=== PATIENT | male | born 1960 | race Caucasian/White ===

== ENCOUNTER 2018-03-05 09:52 | Inpatient (IN) | payer OTHER ==
--- NOTE | 2018-03-05 10:09 | PDOC ---
History of Present Illness <Willi García - Last Filed: 03/05/18 12:02> - History of Present Illness Initial Comments: The patient is a 57M w/ a history of HTN and pre-DM (not on meds) who presents for evaluation of 2 episodes of shortness of breath and associated L arm numbness/discomfort that spontaneously resolved. He reports waking up at 0100 today with L arm pain from his shoulder to elbow and associated SOB. He states his symptoms spontaneously resolved within 10 minutes. He awoke at 0615 to take his kids to school w/o symptoms. Then again he awoke at 0930 with similar but less intense symptoms which resolved after approximately 30m. Denies fevers/chills, BOYD, vision changes, chest pain. Denies current SOB, N/V/C/D 03/05/18 10:33 <Freddy Culp - Last Filed: 03/05/18 12:48> - General Chief Complaint: Pain Stated Complaint: PAIN TO LEFT SHOULDER AND DOWN LEFT ARM Past History <Willi García - Last Filed: 03/05/18 12:02> - Past Medical History Anemia: No Asthma: No Cancer: No Cardiac Disorders: No CVA: No COPD: No CHF: No Dementia: No Diabetes: Yes GI Disorders: No Disorders: No HTN: Yes Hypercholesterolemia: No Liver Disease: No Seizures: No Thyroid Disease: No - Surgical History Abdominal Surgery: No Appendectomy: No Cardiac Surgery: No Cholecystectomy: Yes Lung Surgery: No Neurologic Surgery: No Orthopedic Surgery: No - Suicide/Smoking/Psychosocial Hx Smoking Status: Yes Smoking History: Current every day smoker Have you smoked in the past 12 months: Yes Number of Cigarettes Smoked Daily: 10 'Breaking Loose' booklet given: 09/19/13 Hx Alcohol Use: No Drug/Substance Use Hx: No Substance Use Type: None Hx Substance Use Treatment: No <Freddy Culp - Last Filed: 03/05/18 12:48> - Past Medical History Allergies/Adverse Reactions: Allergies Allergy/AdvReac Type Severity Reaction Status Date / Time Penicillins Allergy Intermediate Swelling Verified 03/05/18 10:00 Home Medications: Ambulatory Orders NK [No Known Home Medication] 03/05/18 Review of Systems - Review of Systems Able to Perform ROS?: Yes Comments:: GENERAL/CONSTITUTIONAL: No fever or chills. No weakness HEAD, EYES, EARS, NOSE AND THROAT: No change in vision. No ear pain or discharge. No sore throat CARDIOVASCULAR: No current chest pain or shortness of breath RESPIRATORY: No cough, wheezing, or hemoptysis GASTROINTESTINAL: No nausea, vomiting, diarrhea or constipation GENITOURINARY: No dysuria, frequency, or change in urination MUSCULOSKELETAL: No joint or muscle swelling or pain. No neck or back pain SKIN: No rash NEUROLOGIC: No headache, vertigo, loss of consciousness, or change in strength/ sensation ENDOCRINE: No increased thirst. No abnormal weight change HEMATOLOGIC/LYMPHATIC: No anemia, easy bleeding, or history of blood clots ALLERGIC/IMMUNOLOGIC: No hives or skin allergy 03/05/18 10:07 Is the patient limited Ethiopian proficient: No <Freddy Culp - Last Filed: 03/05/18 12:48> *Physical Exam - Vital Signs Last Vital Signs Temp Pulse Resp BP Pulse Ox 98.4 F 70 16 169/67 98 03/05/18 09:54 03/05/18 11:47 03/05/18 11:47 03/05/18 11:47 03/05/18 10:59 <Willi García - Last Filed: 03/05/18 12:02> - Vital Signs Vital Signs Temp Pulse Resp BP Pulse Ox 98.4 F 79 20 229/121 H 99 03/05/18 09:54 03/05/18 09:54 03/05/18 09:54 03/05/18 09:54 03/05/18 09:54 03/05/18 10:48 - Physical Exam Comments: GENERAL: Awake, alert, and fully oriented, in no acute distress HEAD: No signs of trauma, normocephalic, atraumatic EYES: PERRLA, EOMI, sclera anicteric, conjunctiva clear LUNGS: No distress, speaks full sentences, clear to auscultation bilaterally HEART: Regular rate and rhythm, normal S1 and S2, no murmurs, rubs or gallops, peripheral pulses normal and equal bilaterally ABDOMEN: Soft, nontender, normoactive bowel sounds. No guarding, no rebound EXTREMITIES : Normal inspection, Normal range of motion, no edema. No clubbing or cyanosis NEUROLOGICAL: Cranial nerves II through XII grossly intact. Normal speech, normal gait, no focal sensorimotor deficits SKIN: Warm, Dry, normal turgor, no rashes or lesions noted 03/05/18 10:08 <Freddy Culp - Last Filed: 03/05/18 12:48> ED Treatment Course - LABORATORY CBC & Chemistry Diagram: 03/05/18 10:39 03/05/18 10:39 - ADDITIONAL ORDERS Additional order review: Laboratory Results 03/05/18 10:39 Sodium 136 Potassium 3.9 Chloride 101 Carbon Dioxide 24 Anion Gap 11 BUN 12 Creatinine 0.8 Creat Clearance w eGFR > 60 Random Glucose 215 H Calcium 8.4 L Total Bilirubin 1.5 H AST 24 ALT 38 Alkaline Phosphatase 92 Creatine Kinase 100 Troponin I < 0.02 Total Protein 7.2 Albumin 3.9 03/05/18 10:39 RBC 4.96 MCV 84.4 MCHC 35.0 RDW 13.6 MPV 7.8 D - Medications Given in the ED: ED Medications Discontinued Medications Generic Name Dose Route Start Last Admin Trade Name Nell PRN Reason Stop Dose Admin Hydralazine HCl 10 mg 03/05/18 11:11 03/05/18 11:28 Apresoline Injection - IVPUSH 03/05/18 11:12 Not Given ONCE ONE <Willi García - Last Filed: 03/05/18 12:02> - LABORATORY CBC & Chemistry Diagram: 03/05/18 10:39 03/05/18 10:39 <Freddy Culp - Last Filed: 03/05/18 12:48> Medical Decision Making - Medical Decision Making The patient is a 57M w/ a history of HTN and pre-DM who presents for evaluation of 2 episodes of SOB w/ associated L arm pain that woke him from sleep and spontaneously resolved Ddx: HTN urgency, ACS, EDUARDA though less likely, not likely [facility] ED Course CMP, CBC, Cardiac enzymes ECG CXR 03/05/18 10:49 No leukocytosis No anemia lytes wnl Hyperglycemia to 215 Trop I neg 03/05/18 12:20 CXR w/o evidence of PNA, PNX, effusion, or widened mediastinum Plan for admission for HTN crisis and ACS r/o Planned for hydralazine 10mg IV once for HTN crsis. Pt's BP spontaneously decreased to SBP 160s. Will hold Hydralazine for now 03/05/18 12:22 Dispo: Admit 03/05/18 12:46 <Freddy Culp - Last Filed: 03/05/18 12:48> *DC/Admit/Observation/Transfer - Discharge Dispostion Decision to Admit order: Yes <Willi García - Last Filed: 03/05/18 12:02> - Discharge Dispostion Decision to Admit order: Yes <Freddy Culp - Last Filed: 03/05/18 12:48> Diagnosis at time of Disposition: ACS (acute coronary syndrome), Hypertensive crisis - Discharge Dispostion Condition at time of disposition: Fair
[2018-03-05 10:14] VITALS: BMI 38.5
[2018-03-05 10:42] LABS: HEMATOCRIT 41.9 % (35.4-49); HEMOGLOBIN 14.7 GM/dl (11.7-16.9); MCH 29.6 pg (25.7-33.7); MEAN CELL VOLUME 84.4 fl (80-96); MEAN PLT VOLUME 7.8 fl (7.5-11.1); PLATELET COUNT 219 K/MM3 (134-434); RBC 4.96 M/mm3 (4.00-5.60); RDW 13.6 % (11.9-15.9); WHITE BLOOD COUNT 7.7 K/mm3 (4.0-10.8)
--- NOTE | 2018-03-05 11:08 | PDOC ---
Attending Attestation - Resident Resident Name: Erna Culpan - ED Attending Attestation I have performed the following: I have examined & evaluated the patient, The case was reviewed & discussed with the resident, I agree w/resident's findings & plan - HPI HPI: 03/05/18 11:04 57-year-old male with history of hypertension and diabetes off medications and lost to follow-up for a couple of years secondary to insurance reasons, otherwise in good state of health recently until this morning, when he awoke 2 times episodes of left shoulder pain with difficulty breathing. Each episode lasted about 15 minutes, resolved spontaneously. No associated headache or vision changes or speech changes, no actual chest pain or palpitations or lightheadedness or diaphoresis. At baseline, reports no exercise limitations and is active daily, has been losing weight. - Physicial Exam PE: 03/05/18 11:05 Markedly elevated blood pressures with systolic over 200, otherwise well- appearing seated in stretcher smiling and conversant Pupils are equal round reactive to light, no JVD Heart is regular without murmurs Lungs are clear Abdomen is benign No edema or calf tenderness - Medical Decision Making 03/05/18 11:06 57-year-old male with history of untreated hypertension and diabetes presents with 2 separate episodes of shortness of breath, hypertensive on arrival. Likely symptomatic hypertension, ACS is on the differential as well. Labs, EKG, chest x-ray Blood pressure control Will need admission for echo, blood pressure control, and reinstating medical care 03/05/18 11:55 trop negative, chem wnl. proceed with inpt tele for hypertensive emergency, signout given to DASHAWN Nguyen, Dr. Rome accepting. Heart Score/ECG Review #1 ECG reviewed & interpreted by me at: 10:09 General ECG Interpretation: Sinus Rhythm, Normal Rate (66), Normal Intervals ( qtc 415), No acute ischemic changes
[2018-03-05] MEDS ORDERED: hydrALAZINE HCL 20 MG/ML VIAL IVPUSH ONE ×2 (11:11→15:45)
[2018-03-05] MEDS ORDERED: hydrALAZINE HCL 20 MG/ML VIAL ONE (11:14)
[2018-03-05 11:49] LABS: ALBUMIN 3.9 g/dl (3.4-5.0); ALK PHOS 92 U/L (45-117); ANION GAP 11 MMOL/L (8-16); BILIRUBIN,TOTAL 1.5 mg/dL (0.2-1); BLOOD UREA NITROGEN 12 mg/dL (7-18); CALCIUM 8.4 mg/dL (8.5-10.1); CHLORIDE 101 mmol/L (98-107); CO2 24 mmol/L (21-32); CREATININE 0.8 mg/dL (0.55-1.3); GLUCOSE,RANDOM 215 mg/dL (74-106); POTASSIUM 3.9 mmol/L (3.5-5.1); SGOT/AST 24 U/L (15-37); SGPT/ALT 38 U/L (13-61); SODIUM 136 mmol/L (136-145); TOT PROT 7.2 g/dl (6.4-8.2)
--- NOTE | 2018-03-05 12:59 | EKG ---
Test Reason : Blood Pressure : / mmHG Vent. Rate : 066 BPM Atrial Rate : 066 BPM P-R Int : 154 ms QRS Dur : 094 ms QT Int : 396 ms P-R-T Axes : 057 035 013 degrees QTc Int : 415 ms NORMAL SINUS RHYTHM NORMAL ECG NO PREVIOUS ECGS AVAILABLE Confirmed by Fransisco Chavira MD ([id number]) on 03/05/2018 12:59:26 PM Referred By: DAX HURTADO Confirmed By:Fransisco Chavira MD
--- NOTE | 2018-03-05 14:32 | HP ---
CHIEF COMPLAINT: Shortness of breath and left arm numbness PCP: None HISTORY OF PRESENT ILLNESS: 57 year-old male with a PMH significant for HTN and non-insulin dependent Type II diabetes. The patient has not taken medication for several years because he lost his health insurance. He presents to the ED today after experiencing two episodes of left arm tricep pain and tingling in the fingers of his left hand. These events occurred while he was sleeping. He think he may have been sleeping on his left arm the wrong way. Each time the pain woke him up and he also experienced shortness of breath. Patient denies chest pain, palpitations, decreased exercise tolerance, orthopnea, and lower extremity edema. Denies fever , sweats, chills. Denies nausea, vomiting, diarrhea. 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 Smoking: current every day smoker Alcohol: denies Drugs: denies Family History: Allergies Penicillins Allergy (Intermediate, Verified 03/05/18 10:00) Swelling A CHILD HOME MEDICATIONS: Home Medications Medication Instructions Recorded NK [No Known Home Medication] 03/05/18 REVIEW OF SYSTEMS CONSTITUTIONAL: Absent: fever, chills, diaphoresis, generalized weakness, malaise, loss of appetite, weight change HEENT: Absent: rhinorrhea, nasal congestion, throat pain, throat swelling, difficulty swallowing, mouth swelling, ear pain, eye pain, visual changes CARDIOVASCULAR: +left arm pain, tingling in fingers of left hand, SOB Absent: chest pain, syncope, palpitations, irregular heart rate, lightheadedness , peripheral edema RESPIRATORY: Absent: cough, shortness of breath, dyspnea with exertion, orthopnea, wheezing, stridor, hemoptysis GASTROINTESTINAL: Absent: abdominal pain, abdominal distension, nausea, vomiting, diarrhea, constipation, melena, hematochezia GENITOURINARY: Absent: dysuria, frequency, urgency, hesitancy, hematuria, flank pain, genital pain MUSCULOSKELETAL: Absent: myalgia, arthralgia, joint swelling, back pain, neck pain SKIN: Absent: rash, itching, pallor HEMATOLOGIC/IMMUNOLOGIC: Absent: easy bleeding, easy bruising, lymphadenopathy, frequent infections ENDOCRINE: Absent: unexplained weight gain, unexplained weight loss, heat intolerance, cold intolerance NEUROLOGIC: Absent: headache, focal weakness or paresthesias, dizziness, unsteady gait, seizure, mental status changes, bladder or bowel incontinence PSYCHIATRIC: Absent: anxiety, depression, suicidal or homicidal ideation, hallucinations. PHYSICAL EXAMINATION Vital Signs - 24 hr 03/05/18 03/05/18 03/05/18 09:54 10:59 11:28 Temperature 98.4 F Pulse Rate 79 Pulse Rate [ 72 64 Apical] Respiratory 20 16 16 Rate Blood Pressure 229/121 H Blood Pressure 207/99 H 172/83 H [Right Arm] O2 Sat by Pulse 99 98 Oximetry (%) 03/05/18 03/05/18 03/05/18 11:47 13:11 14:10 Temperature Pulse Rate Pulse Rate [ 70 72 72 Apical] Respiratory 16 16 16 Rate Blood Pressure Blood Pressure 169/67 184/87 H 162/85 [Right Arm] O2 Sat by Pulse 100 Oximetry (%) GENERAL: Awake, alert, and fully oriented, in no acute distress. Agitated, loud , verbally agressive toward staff. LUNGS: Breath sounds equal, clear to auscultation bilaterally. No wheezes, and no crackles. No accessory muscle use. HEART: Regular rate and rhythm, normal S1 and S2 without murmur, rub or gallop. ABDOMEN: Soft, nontender, not distended MUSCULOSKELETAL: Normal range of motion at all joints. No bony deformities or tenderness. No CVA tenderness. UPPER EXTREMITIES: 2+ pulses, warm, well-perfused. No cyanosis. No clubbing. No peripheral edema. LOWER EXTREMITIES: 2+ pulses, warm, well-perfused. No calf tenderness. No peripheral edema. No calf tenderness NEUROLOGICAL: Cranial nerves II-XII intact. Normal speech. Laboratory Results - last 24 hr 03/05/18 03/05/18 10:39 10:39 WBC 7.7 RBC 4.96 Hgb 14.7 Hct 41.9 MCV 84.4 MCH 29.6 MCHC 35.0 RDW 13.6 Plt Count 219 MPV 7.8 D Sodium 136 Potassium 3.9 Chloride 101 Carbon Dioxide 24 Anion Gap 11 BUN 12 Creatinine 0.8 Creat Clearance w eGFR > 60 Random Glucose 215 H Calcium 8.4 L Total Bilirubin 1.5 H AST 24 ALT 38 Alkaline Phosphatase 92 Creatine Kinase 100 Troponin I < 0.02 Total Protein 7.2 Albumin 3.9 ASSESSMENT/PLAN 57 year-old male with a PMH significant for HTN, non-insulin dependent Type II diabetes, morbid obesity, and s/p cholecystectomy with questionable ascending cholangitis in 2013 (signed out AMA). Admitted for hypertensive emergency. Hypertensive emergency --229/121 on arrival to ED with SOB and left arm numbness --hydralazine IVP and PO given with little effect; amlopine and lisinopril given with little effect; will start labetolol IVP and PO --troponin neg x 1, two pending --CXR unremarkable --ECG: not suggestive of acute ischemic event --echo prdered --telemetry monitoring --cardiology consult --NPO after midnight in case cardiology wants to stress tomorrow Non-insulin dependent Type II diabetes --was on meds years ago but lost to follow up, lost insurance --A1C pending --Novolog sliding scale Elevated total bilirubin s/p cholecystectomy --Total bili 1.5 --bili elevated in past, 5.0 in 2013 during workup for ascending cholangitis --repeat LFTs in am Morbid obesity --BMI 38.5 FEN Fluids: PO intake adequate Electrolytes: repete as indicated Nutrition: diabetic low sodium DVT prophylaxis: subq heparin Dispo: continues to require inpatient care. Visit type - Emergency Visit Emergency Visit: Yes ED Registration Date: 03/05/18 Care time: The patient presented to the Emergency Department on the above date and was hospitalized for further evaluation of their emergent condition. - New Patient This patient is new to me today: Yes Date on this admission: 03/06/18 - Critical Care Critical Care patient: No
[2018-03-05] MEDS: hydrALAZINE HCL 20 MG/ML VIAL IVPUSH ONE ×2 (14:50→15:41)
[2018-03-05] MEDS ORDERED: hydrALAZINE HCL 10 MG TABLET PO SCH (15:00)
[2018-03-05] MEDS ORDERED: hydrALAZINE HCL 10 MG TABLET PO ONE (15:45)
[2018-03-05] MEDS: INSULIN SLIDING SCALE (NOVOLOG) 1 VIAL SQ SCH ×2 (17:16→21:38)
[2018-03-05] MEDS ORDERED: amLODIPine BESYLATE 5 MG TABLET (FP) PO ONE (18:15)
[2018-03-05] MEDS ORDERED: LISINOPRIL 10 MG TABLET (FP) PO ONE (18:15)
--- NOTE | 2018-03-05 18:49 | CON.CARD ---
Consult Consult Specialty:: Cardiology Reason for Consultation:: sob left arm numbness - History of Present Illness History of Present Illness: The patient is a 57M w/ a history of HTN and pre-DM (not on meds) who presents for evaluation of 2 episodes of shortness of breath and associated L arm numbness/discomfort that spontaneously resolved. He reports waking up at 0100 today with L arm pain from his shoulder to elbow and associated SOB. He states his symptoms spontaneously resolved within 10 minutes. He awoke at 0615 to take his kids to school w/o symptoms. Then again he awoke at 0930 with similar but less intense symptoms which resolved after approximately 30m. Denies fevers/chills, BOYD, vision changes, chest pain. Denies current SOB, N/V/C/D - History Source History Provided By: Patient, Medical Record - Past Medical History Cardio/Vascular: Yes: HTN Endocrine: Yes: Diabetes Mellitus - Alcohol/Substance Use Hx Alcohol Use: No - Smoking History Smoking history: Current every day smoker Have you smoked in the past 12 months: Yes Aproximately how many cigarettes per day: 10 If you are a former smoker, when did you quit?: 7 YEARS Home Medications - Allergies Allergies/Adverse Reactions: Allergies Allergy/AdvReac Type Severity Reaction Status Date / Time Penicillins Allergy Intermediate Swelling Verified 03/05/18 10:00 - Home Medications Home Medications: Ambulatory Orders NK [No Known Home Medication] 03/05/18 Review of Systems - Review of Systems Constitutional: reports: No Symptoms Eyes: reports: No Symptoms HENT: reports: No Symptoms Neck: reports: No Symptoms Cardiovascular: reports: Chest Pain, Shortness of Breath Gastrointestinal: reports: No Symptoms Genitourinary: reports: No Symptoms Breasts: reports: No Symptoms Reported Musculoskeletal: reports: No Symptoms Integumentary: reports: No Symptoms Neurological: reports: No Symptoms Endocrine: reports: No Symptoms Hematology/Lymphatic: reports: No Symptoms Psychiatric: reports: No Symptoms Vital Signs: Vital Signs Temperature 98.1 F 03/05/18 12:26 Pulse Rate 76 03/05/18 17:35 Respiratory Rate 16 03/05/18 14:10 Blood Pressure 205/92 H 03/05/18 17:35 O2 Sat by Pulse Oximetry (%) 100 03/05/18 14:10 Constitutional: Yes: Well Nourished, No Distress, Calm Eyes: Yes: WNL, Conjunctiva Clear, EOM Intact HENT: Yes: WNL, Atraumatic, Normocephalic Neck: Yes: WNL, Supple, Trachea Midline Respiratory: Yes: WNL, Regular, CTA Bilaterally Gastrointestinal: Yes: WNL, Normal Bowel Sounds Renal/: Yes: WNL Cardiovascular: Yes: WNL, Regular Rate and Rhythm Musculoskeletal: Yes: WNL Extremities: Yes: WNL Integumentary: Yes: WNL Neurological: Yes: WNL, Alert, Oriented ...Motor Strength: WNL Psychiatric: Yes: WNL, Alert, Oriented - Other Data Labs, Other Data: CBC, BMP 03/05/18 10:39 03/05/18 10:39 Troponin, BNP 03/05/18 03/05/18 10:39 17:00 Troponin I < 0.02 < 0.03 Troponin, BNP 03/05/18 03/05/18 10:39 17:00 Troponin I < 0.02 < 0.03 Laboratory Tests 03/05/18 03/05/18 03/05/18 10:39 10:39 17:00 WBC 7.7 RBC 4.96 Hgb 14.7 Hct 41.9 MCV 84.4 MCH 29.6 MCHC 35.0 RDW 13.6 Plt Count 219 MPV 7.8 D Sodium 136 Potassium 3.9 Chloride 101 Carbon Dioxide 24 Anion Gap 11 BUN 12 Creatinine 0.8 Creat Clearance w eGFR > 60 POC Glucometer Random Glucose 215 H Calcium 8.4 L Total Bilirubin 1.5 H AST 24 ALT 38 Alkaline Phosphatase 92 Creatine Kinase 100 Troponin I < 0.02 < 0.03 Total Protein 7.2 Albumin 3.9 03/05/18 17:13 WBC RBC Hgb Hct MCV MCH MCHC RDW Plt Count MPV Sodium Potassium Chloride Carbon Dioxide Anion Gap BUN Creatinine Creat Clearance w eGFR POC Glucometer 185 Random Glucose Calcium Total Bilirubin AST ALT Alkaline Phosphatase Creatine Kinase Troponin I Total Protein Albumin Imaging - Results Chest X-ray: Image Reviewed (no i/e) EKG: Image Reviewed (sr q wave in V2 ? placement o/w unremarkable) Problem List - Problems (1) ACS (acute coronary syndrome) Code(s): I24.9 - ACUTE ISCHEMIC HEART DISEASE, UNSPECIFIED (2) Hypertensive crisis Code(s): I16.9 - HYPERTENSIVE CRISIS, UNSPECIFIED (3) FUO (fever of unknown origin) Code(s): R50.9 - FEVER, UNSPECIFIED Assessment/Plan HTN DM Morbid obesity noncompliance sob l arm pain Plan norvasc 5 lisinopril 10 [id number] r/josephine telemetry lipid profile DM rx ECHO If BP controlled in AM MIBI ST Patient stating he may just go home and not to wait for the w/u. He understands the risks of . D/w patient , patient and DIE ASSEMBLER Patrick
[2018-03-05] MEDS: ASPIRIN 81 MG CHEWABLE TABLETS PO SCH ×2 (19:00→21:38)
[2018-03-05] MEDS ORDERED: LABETALOL HCL 5 MG/1 ML (100MG/20 ML VIAL) ONE (21:25)
[2018-03-05] MEDS ORDERED: LABETALOL HCL 5 MG/1 ML (100MG/20 ML VIAL) IVPUSH ONE (21:45)
[2018-03-05] MEDS ORDERED: LABETALOL HCL 200 MG TABLET (FP) PO ONE (21:45)
[2018-03-06] MEDS ORDERED: LABETALOL HCL 100 MG TABLET (FP) PO SCH (06:00)
[2018-03-06] MEDS: HEPARIN NA (PORCINE) 5,000 UNITS/ML 1ML VIAL SQ SCH ×2 (06:41→14:00)
[2018-03-06] MEDS: INSULIN SLIDING SCALE (NOVOLOG) 1 VIAL SQ SCH ×2 (06:41→12:00)
[2018-03-06 08:46] LABS: BASO % 0.4 % (0-2.0); EOS % 1.3 % (0-4.5); HEMATOCRIT 41.5 % (35.4-49); HEMOGLOBIN 14.6 GM/dl (11.7-16.9); LYMPH % 18.5 % (8-40); MCH 29.9 pg (25.7-33.7); MCHC 35.2 g/dl (32.0-35.9); MEAN CELL VOLUME 85.1 fl (80-96); MEAN PLT VOLUME 8.3 fl (7.5-11.1); MONO % 7.1 % (3.8-10.2); NEUT % 72.7 % (42.8-82.8); PLATELET COUNT 209 K/MM3 (134-434); RBC 4.88 M/mm3 (4.00-5.60); RDW 13.5 % (11.9-15.9); WHITE BLOOD COUNT 8.7 K/mm3 (4.0-10.8)
[2018-03-06 08:52] LABS: ALBUMIN 3.8 g/dl (3.5-5.0); ALK PHOS 66 U/L (32-92); ANION GAP 9 MMOL/L (8-16); BILIRUBIN,TOTAL 1.8 mg/dl (0.2-1.0); BLOOD UREA NITROGEN 14 mg/dl (7-18); CALCIUM 8.9 mg/dl (8.4-10.2); CHLORIDE 102 mmol/L (98-107); CO2 23 mmol/L (22-28); CREATININE 0.7 mg/dl (0.6-1.3); GLUCOSE,RANDOM 230 mg/dl (74-106); MAGNESIUM 1.9 mg/dL (1.8-2.4); PHOSPHOROUS 3.6 mg/dl (2.5-4.6); POTASSIUM 3.7 mmol/L (3.5-5.1); SGOT/AST 22 U/L (10-42); SGPT/ALT 29 U/L (10-40); SODIUM 134 mmol/L (136-145); TOT PROT 6.7 g/dl (6.4-8.3)
[2018-03-06 08:57] LABS: ALBUMIN 3.8 g/dl (3.5-5.0); BILIRUBIN,DIRECT 0.3 mg/dL (0.0-0.3); BILIRUBIN,TOTAL 1.8 mg/dl (0.2-1.0); CHOLESTEROL 153 mg/dl; HDL CHOLESTEROL 37 mg/dl (29-89); LDL CHOLESTEROL (ONLY DFH) 88 mg/dl; TOT PROT 6.7 g/dl (6.4-8.3); TRIGLYCERIDES 139 mg/dl (35-160)
[2018-03-06] MEDS: ASPIRIN 81 MG CHEWABLE TABLETS PO SCH (09:54)
[2018-03-06] MEDS ORDERED: amLODIPine BESYLATE 5 MG TABLET (FP) PO SCH (10:00)
[2018-03-06] MEDS ORDERED: LISINOPRIL 10 MG TABLET (FP) PO SCH (10:00)
--- NOTE | 2018-03-06 11:17 | PN ---
Progress Note, Physician History of Present Illness: The patient is a 57M w/ a history of HTN and pre-DM (not on meds) who presents for evaluation of 2 episodes of shortness of breath and associated L arm numbness/discomfort that spontaneously resolved. He reports waking up at 0100 today with L arm pain from his shoulder to elbow and associated SOB. He states his symptoms spontaneously resolved within 10 minutes. He awoke at 0615 to take his kids to school w/o symptoms. Then again he awoke at 0930 with similar but less intense symptoms which resolved after approximately 30m. Denies fevers/chills, BOYD, vision changes, chest pain. Denies current SOB, N/V/C/D - Current Medication List Current Medications: Active Medications Amlodipine Besylate (Norvasc -) 5 mg PO DAILY [facility] Last Admin: 03/06/18 09:53 Dose: 5 mg Aspirin (Asa -) 81 mg PO DAILY [facility] Last Admin: 03/06/18 09:54 Dose: Not Given Heparin Sodium (Porcine) (Heparin -) 5,000 unit SQ TID [facility] Last Admin: 03/06/18 06:41 Dose: 5,000 unit Insulin Aspart (Novolog Vial Sliding Scale -) 1 vial SQ [facility]; Protocol Last Admin: 03/06/18 06:41 Dose: Not Given Labetalol HCl (Normodyne -) 100 mg PO BID@0600,1800 [facility] Last Admin: 03/06/18 06:40 Dose: 100 mg Lisinopril (Prinivil) 10 mg PO DAILY [facility] Last Admin: 03/06/18 09:53 Dose: 10 mg - Objective Vital Signs: Vital Signs Temperature 97.9 F 03/06/18 08:51 Pulse Rate 73 03/06/18 08:51 Respiratory Rate 18 03/06/18 08:52 Blood Pressure 158/61 03/06/18 08:51 O2 Sat by Pulse Oximetry (%) 100 03/05/18 20:09 Eyes: Yes: WNL, Conjunctiva Clear, EOM Intact HENT: Yes: WNL, Atraumatic, Normocephalic Neck: Yes: WNL, Supple, Trachea Midline Cardiovascular: Yes: WNL, Regular Rate and Rhythm Respiratory: Yes: WNL, Regular, CTA Bilaterally Gastrointestinal: Yes: WNL, Normal Bowel Sounds Genitourinary: Yes: WNL Musculoskeletal: Yes: WNL Extremities: Yes: WNL Edema: No Integumentary: Yes: WNL Neurological: Yes: WNL, Alert, Oriented ...Motor Strength: WNL Psychiatric: Yes: WNL Labs: CBC, BMP 03/06/18 07:52 03/06/18 07:52 Problem List - Problems (1) ACS (acute coronary syndrome) Code(s): I24.9 - ACUTE ISCHEMIC HEART DISEASE, UNSPECIFIED (2) Hypertensive crisis Code(s): I16.9 - HYPERTENSIVE CRISIS, UNSPECIFIED (3) FUO (fever of unknown origin) Code(s): R50.9 - FEVER, UNSPECIFIED Assessment/Plan HTN DM Morbid obesity noncompliance sob l arm pain echo nl ef mibi st no ischemia ef 47% hypertensive response to exercise Plan d/c home norvasc 5 lisinopril 10 [id number] rx for DM ? Metformin importance of compliance underscored. Patient understands the risks of , AL, CVA (even in the setting of negative MIBI stress test) if he does not aggressively control his risks factors and continue non-compliance. D/w patient , patient and CYBER SECURITY ENGINEER Patrick
--- NOTE | 2018-03-06 12:13 | ECHO ---
Name: NERISSA ALCARAZ Exam:Adult Echocardiogram Study Date: 03/06/2018 08:54 AM Age: 57 yrs Reason For Study: HYPERTENSIVE CHEST PAIN Height: 74 in MMode/2D Measurements & Calculations IVSd: 1.2 cm Ao root diam: 2.8 cm LVIDd: 4.5 cm LA dimension: 3.6 cm LVIDs: 3.0 cm LVPWd: 0.93 cm EDV(Teich): 93.2 ml ESV(Teich): 35.8 ml Doppler Measurements & Calculations MV E max marley: 63.9 cm/sec MV dec slope: 256.9 cm/sec2 MV A max marley: 88.8 cm/sec MV E/A: 0.72 Procedure A two-dimensional transthoracic echocardiogram with color flow and Doppler was performed. The study w as technically difficult with many images being suboptimal in quality. Left Ventricle The left ventricular size, thickness and function are normal. The left ventricular ejection fraction is normal. E/A reversal consistent with but not diagnostic of poor LV compliance. The left ventricular w all motion is normal. Right Ventricle The right ventricle is normal in size and function. Atria Normal left and right atrial size and function. Mitral Valve There is mild mitral valve thickening. There is no mitral valve stenosis. There is mild mitral regurg itation. Tricuspid Valve There is mild tricuspid valve thickening. There is no tricuspid stenosis. There was insufficient TR d etected to calculate RV systolic pressure. Aortic Valve The aortic valve is not well visualized. No hemodynamically significant valvular aortic stenosis. No aortic regurgitation is present. Pulmonic Valve The pulmonic valve is not well visualized. There is no pulmonic valvular stenosis. There is no pulmon ic valvular regurgitation. Great Vessels The aortic root is normal size. Pericardium/Pleura There is no pericardial effusion. Interpretation Summary The left ventricular size, thickness and function are normal The left ventricular ejection fraction is normal. The left ventricular wall motion is normal. The study was technically difficult with many images being suboptimal in quality. E/A reversal consistent with but not diagnostic of poor LV compliance There is mild mitral valve thickening. There is mild mitral regurgitation. There was insufficient TR detected to calculate RV systolic pressure. MD Liam Elizabeth 03/06/2018 12:13 PM
--- NOTE | 2018-03-06 16:51 | DS ---
Physical Exam: SUBJECTIVE: Patient seen and examined OBJECTIVE: Vital Signs Period Temp Pulse Resp BP Sys/Ferguson Pulse Ox Last 24 Hr 97.9 F-98.1 F 66-80 16-18 143-205/61-96 100 PHYSICAL EXAM GENERAL: The patient is awake, alert, and fully oriented, in no acute distress. HEAD: Normal with no signs of trauma. EYES: PERRL, extraocular movements intact, sclera anicteric, conjunctiva clear. ENT: Ears normal, nares patent, oropharynx clear without exudates, moist mucous membranes. NECK: Trachea midline, full range of motion, supple. LUNGS: Breath sounds equal, clear to auscultation bilaterally, no wheezes, no crackles, no accessory muscle use. HEART: Regular rate and rhythm, S1, S2 without murmur, rub or gallop. ABDOMEN: Soft, nontender, nondistended, normoactive bowel sounds, no guarding, no rebound, no hepatosplenomegaly, no masses. EXTREMITIES: 2+ pulses, warm, well-perfused, no edema. NEUROLOGICAL: Cranial nerves II through XII grossly intact. Normal speech, gait not observed. PSYCH: Normal mood, normal affect. SKIN: Warm, dry, normal turgor, no rashes or lesions noted. LABS Laboratory Results - last 24 hr 03/05/18 03/05/18 03/06/18 17:00 17:13 05:14 WBC RBC Hgb Hct MCV MCH MCHC RDW Plt Count MPV Absolute Neuts (auto) Neutrophils % Lymphocytes % Monocytes % Eosinophils % Basophils % Sodium Potassium Chloride Carbon Dioxide Anion Gap BUN Creatinine Creat Clearance w eGFR POC Glucometer 185 230 Random Glucose Hemoglobin A1c % Calcium Phosphorus Magnesium Total Bilirubin Direct Bilirubin AST ALT Alkaline Phosphatase Troponin I < 0.03 Total Protein Albumin Triglycerides Cholesterol Total LDL Cholesterol HDL Cholesterol 03/06/18 03/06/18 03/06/18 07:52 07:52 07:52 WBC 8.7 RBC 4.88 Hgb 14.6 Hct 41.5 MCV 85.1 MCH 29.9 MCHC 35.2 RDW 13.5 Plt Count 209 MPV 8.3 Absolute Neuts (auto) 6.4 Neutrophils % 72.7 Lymphocytes % 18.5 Monocytes % 7.1 Eosinophils % 1.3 D Basophils % 0.4 D Sodium 134 L Potassium 3.7 Chloride 102 Carbon Dioxide 23 Anion Gap 9 BUN 14 Creatinine 0.7 Creat Clearance w eGFR > 60 POC Glucometer Random Glucose 230 H D Hemoglobin A1c % Calcium 8.9 Phosphorus 3.6 Magnesium 1.9 Total Bilirubin 1.8 H 1.8 H Direct Bilirubin 0.3 D AST 22 22 ALT 29 D 28 Alkaline Phosphatase 66 69 Troponin I Total Protein 6.7 6.7 Albumin 3.8 3.8 Triglycerides Cholesterol Total LDL Cholesterol HDL Cholesterol 03/06/18 03/06/18 07:52 13:02 WBC RBC Hgb Hct MCV MCH MCHC RDW Plt Count MPV Absolute Neuts (auto) Neutrophils % Lymphocytes % Monocytes % Eosinophils % Basophils % Sodium Potassium Chloride Carbon Dioxide Anion Gap BUN Creatinine Creat Clearance w eGFR POC Glucometer Random Glucose Hemoglobin A1c % 7.6 H Calcium Phosphorus Magnesium Total Bilirubin Direct Bilirubin AST ALT Alkaline Phosphatase Troponin I Total Protein Albumin Triglycerides 139 Cholesterol 153 Total LDL Cholesterol 88 HDL Cholesterol 37 HOSPITAL COURSE: Date of Admission:03/05/18 Date of Discharge: 03/06/18 Pre hospital course 57 year-old male with a PMH significant for HTN and non-insulin dependent Type II diabetes. The patient has not taken medication for several years because he lost his health insurance. He presents to the ED today after experiencing two episodes of left arm tricep pain and tingling in the fingers of his left hand. These events occurred while he was sleeping. He think he may have been sleeping on his left arm the wrong way. Each time the pain woke him up and he also experienced shortness of breath. Patient denies chest pain, palpitations, decreased exercise tolerance, orthopnea, and lower extremity edema. Denies fever , sweats, chills. Denies nausea, vomiting, diarrhea. ER course was notable for: (1) BP 229/121, p72 Subsequent hospital course 57 year-old male with a PMH significant for HTN, non-insulin dependent Type II diabetes, morbid obesity, and s/p cholecystectomy with questionable ascending cholangitis in 2013 (signed out AMA). Admitted for hypertensive emergency. Hypertensive emergency Newly diagnosed mild systolic heart failure --229/121 on arrival to ED with SOB and left arm numbness --hydralazine IVP and PO given with little effect; amlopine and lisinopril given with little effect; BP finally improved with labetolol IVP and PO --troponin neg x 2 --CXR unremarkable --ECG: not suggestive of acute ischemic event --Echo: LV normal; RV normal; mild MR --Stress MIBI: no ischemic changes; mild global hypokinesis, mildly reduced systolic function, EF 47% --discharged on three anti-hypertensives with emphatic teaching on need for medication compliance and regular medical followup Non-insulin dependent Type II diabetes --was on meds years ago but lost to follow up, lost insurance --A1C 7.6 --Novolog sliding scale while inpatient --outpatient followup Elevated total bilirubin s/p cholecystectomy --Total bili 1.5 --bili elevated in past --outpatient followup Morbid obesity --BMI 38.5 Minutes to complete discharge: 35 Discharge Summary Reason For Visit: ACUTE CORONARY SYNDROME Current Active Problems ACS (acute coronary syndrome) (Acute) Hypertensive crisis (Acute) Condition: Stable - Instructions Diet, Activity, Other Instructions: Three medications have been sent to your pharmacy, all of them to help control your blood pressure. Take these medications as prescribed. You have been prescribed a 2-week supply. You will need to follow up with a primary care provider in order to continue on these medications. Included in this discharge packet is the name of a primary care provider at the [facility]. You can call her office to make an appointment. Return to the emergency department for any new or worsening symptoms. Referrals: Gil Lamar MD [Staff Physician] - 1 Week Liam Elizabeth MD [Staff Physician] - Disposition: HOME - Home Medications Comprehensive Discharge Medication List: Ambulatory Orders Amlodipine Besylate [Norvasc -] 5 mg PO DAILY #14 tablet 03/06/18 Lisinopril [Prinivil] 10 mg PO DAILY #14 tablet 03/06/18 hydrALAZINE HCL [Apresoline -] 10 mg PO TID #42 tablet 03/06/18 This patient is new to me today: No Emergency Visit: Yes ED Registration Date: 03/05/18 Care time: The patient presented to the Emergency Department on the above date and was hospitalized for further evaluation of their emergent condition. Critical Care patient: No - Discharge Referral Referred to [facility] Med P.C.: No
[2018-03-06 17:15] VITALS: BP 176/90; PULSE 83; TEMP 98
== END 2018-03-06 17:23 | disposition home or self-care (01) | DRG 305 ==
LOC: FER 09:52 → UNDOADMIN 12:26 → FM/S 12:26
PROVIDERS: ADMIT Hospitalist; ATTEND Nurse Practitioner Acute Care
DX: I16.0 Hypertensive urgency (principal); I50.20 Unspecified systolic (congestive) heart failure; E11.9 Type 2 diabetes mellitus without complications; I11.0 Hypertensive heart disease with heart failure; E66.01 Morbid (severe) obesity due to excess calories; Z68.38 Body mass index [BMI] 38.0-38.9, adult; R50.9 Fever, unspecified; F17.210 Nicotine dependence, cigarettes, uncomplicated; Z88.0 Allergy status to penicillin; Z91.14 Patient's other noncompliance with medication regimen
CPT/HCPCS: 36415; 71045-TC-FY; 78452-TC; 80053; 80061; 80076; 82550; 82962; 83036; 83735; 84100; 84484; 85025; 85027; 93005; 93017; 93306-TC; 99284-25; A9502; J1644

== ENCOUNTER 2022-10-06 14:43 | Inpatient (IN) | payer OTHER ==
[2022-10-06] MEDS ORDERED: VANCOMYCIN 1 GM in D5W (PRE-DOCKED) 1,000 MG/250 ML (RESTRICTED TO ID ONLY IVPB ONE (18:51)
[2022-10-06] MEDS ORDERED: CEFEPIME HCL/D5W 2 GM/50 ML BAG IVPB ONE (18:55)
[2022-10-06] MEDS ORDERED: VANCOMYCIN 1,000 MG VIAL (RESTRICTED TO ID ONLY) ONE (19:15)
[2022-10-06] MEDS ORDERED: CEFEPIME HCL 2 GM VIAL (RESTRICTED TO ID) ONE (19:25)
[2022-10-06 19:50] LABS: HEMOGLOBIN 13.7 G/dL (11.7-16.9); MCH 28.5 pg (25.7-33.7); MCHC 35.1 g/dl (32.0-35.9); MEAN CELL VOLUME 81.3 fl (80-96); MEAN PLT VOLUME 8.2 fl (7.5-11.1); PLATELET COUNT 217.5 10^3/uL (134-434); RDW 15.3 % (11.9-15.9); WHITE BLOOD COUNT 10.6 10^3/uL (4.0-10.8)
[2022-10-06 19:56] LABS: INR 1.21 (0.83-1.09)
[2022-10-06 19:58] LABS: ACTIVATED PTT 31.8 SECONDS (25.2-36.5)
[2022-10-06 20:04] LABS: ALBUMIN 4.2 g/dl (3.4-5.0); BILIRUBIN,TOTAL 1.3 mg/dl (0.2-1); BLOOD UREA NITROGEN 19.4 mg/dl (7-18); CALCIUM 8.8 mg/dl (8.5-10.1); CREATININE 1.1 mg/dl (0.6-1.3); POTASSIUM 3.4 mmol/L (3.5-5.1); SGOT/AST 15.2 U/L (15-37); SGPT/ALT 15.5 U/L (7-52); TOT PROT 6.7 g/dl (6.4-8.2)
[2022-10-06 20:14] LABS: PLATELET ESTIMATE ADEQUATE
[2022-10-06 20:23] LABS: ERYTHROCYTE SEDIMENTATION RATE 48 mm/hr (0-20)
[2022-10-06] MEDS ORDERED: DOCUSATE SODIUM 100 MG CAPSULE (FP) PO PRN (21:26)
[2022-10-06] MEDS ORDERED: ACETAMINOPHEN 1000 MG/100 ML BAG IVPB PRN (21:37)
[2022-10-06] MEDS ORDERED: SODIUM CHLORIDE 1,000 ML IV SCH (21:45)
[2022-10-06] MEDS: INSULIN SLIDING SCALE (NOVOLOG) 1 VIAL SQ SCH (22:34)
[2022-10-06] MEDS: LISINOPRIL 20 MG TABLET PO SCH (22:35)
[2022-10-06 23:28] VITALS: BMI 37.3
[2022-10-07] MEDS: LEVOTHYROXINE NA 100 MCG TABLET (FP) PO SCH (07:04)
[2022-10-07] MEDS: INSULIN SLIDING SCALE (NOVOLOG) 1 VIAL SQ SCH ×4 (07:05→21:29)
[2022-10-07] MEDS ORDERED: CEFEPIME 2 GM in DEXTROSE 5%-WATER 100 ML IVPB SCH (09:00)
[2022-10-07 09:10] LABS: BLOOD UREA NITROGEN 16.1 mg/dl (7-18); CALCIUM 8.4 mg/dl (8.5-10.1); CREATININE 0.9 mg/dl (0.6-1.3); MAGNESIUM 1.8 mg/dL (1.8-2.4); PHOSPHOROUS 3.07 (2.5-4.9); POTASSIUM 3.6 mmol/L (3.5-5.1)
[2022-10-07] MEDS: HEPARIN NA (PORCINE) 5,000 UNITS/ML 1ML VIAL SQ SCH ×2 (09:16→21:29)
[2022-10-07] MEDS: LISINOPRIL 20 MG TABLET PO SCH ×2 (09:16→21:29)
[2022-10-07] MEDS: amLODIPine BESYLATE 10 MG TABLET (FP) PO SCH (09:16)
[2022-10-07] MEDS: ASPIRIN COATED 81 MG TABLET.EC PO SCH (09:16)
[2022-10-07] MEDS: HYDROCHLOROTHIAZIDE 12.5 MG CAPSULE (FP) PO SCH (09:16)
[2022-10-07 09:23] LABS: HEMATOCRIT 34.5 % (35.4-49); HEMOGLOBIN 12.2 G/dL (11.7-16.9); MCH 28.5 pg (25.7-33.7); MCHC 35.3 g/dl (32.0-35.9); MEAN CELL VOLUME 80.9 fl (80-96); MEAN PLT VOLUME 8.7 fl (7.5-11.1); PLATELET COUNT 183.9 10^3/uL (134-434); RBC 4.27 10^6/uL (4.00-5.60); RDW 15.3 % (11.9-15.9); WHITE BLOOD COUNT 7.2 10^3/uL (4.0-10.8)
[2022-10-07] MEDS ORDERED: VANCOMYCIN/WATER 2 GM/400 ML PREMIX BAG (RESTRICTED TO ID ONLY) IVPB SCH ×2 (10:00)
[2022-10-07 11:26] LABS: PLATELET ESTIMATE ADEQUATE
[2022-10-07] MEDS: CEFEPIME 2 GM in DEXTROSE 5%-WATER 100 ML IVPB SCH ×3 (16:32→22:56)
[2022-10-07] MEDS ORDERED: ACETAMINOPHEN 325 MG TABLET (FP) PO PRN (21:26)
[2022-10-07] MEDS: VANCOMYCIN PREMIX 1.5 GM 1,500 MG/300 ML BAG IVPB SCH (21:28)
[2022-10-07] MEDS ORDERED: ROSUVASTATIN CA 20 MG TABLET PO SCH (22:00)
[2022-10-08] MEDS: CEFEPIME 2 GM in DEXTROSE 5%-WATER 100 ML IVPB SCH ×2 (06:44→15:52)
[2022-10-08] MEDS: INSULIN SLIDING SCALE (NOVOLOG) 1 VIAL SQ SCH ×2 (06:45→12:00)
[2022-10-08] MEDS: LEVOTHYROXINE NA 100 MCG TABLET (FP) PO SCH (06:45)
[2022-10-08 09:07] VITALS: BP 159/79; PULSE 84; RESP 18; TEMP 99
[2022-10-08] MEDS: HYDROCHLOROTHIAZIDE 12.5 MG CAPSULE (FP) PO SCH (10:29)
[2022-10-08] MEDS: ASPIRIN COATED 81 MG TABLET.EC PO SCH (10:29)
[2022-10-08] MEDS: VANCOMYCIN PREMIX 1.5 GM 1,500 MG/300 ML BAG IVPB SCH (10:30)
[2022-10-08] MEDS: HEPARIN NA (PORCINE) 5,000 UNITS/ML 1ML VIAL SQ SCH (10:30)
[2022-10-08] MEDS: LISINOPRIL 20 MG TABLET PO SCH (10:30)
[2022-10-08] MEDS: amLODIPine BESYLATE 10 MG TABLET (FP) PO SCH (10:30)
[2022-10-08 12:14] LABS: BLOOD UREA NITROGEN 13.4 mg/dl (7-18); CALCIUM 8.1 mg/dl (8.5-10.1); CREATININE 0.9 mg/dl (0.6-1.3); POTASSIUM 3.8 mmol/L (3.5-5.1)
== END 2022-10-08 16:10 | disposition home or self-care (01) | DRG 603 ==
LOC: FER 14:43 → FM/S 20:44
PROVIDERS: ADMIT Internal Medicine; ATTEND Internal Medicine
DX: L03.115 Cellulitis of right lower limb (principal); E11.621 Type 2 diabetes mellitus with foot ulcer; I10 Essential (primary) hypertension; E78.5 Hyperlipidemia, unspecified; L97.519 Non-pressure chronic ulcer of other part of right foot with unspecified severity; E11.65 Type 2 diabetes mellitus with hyperglycemia; E11.42 Type 2 diabetes mellitus with diabetic polyneuropathy; E03.9 Hypothyroidism, unspecified; E66.01 Morbid (severe) obesity due to excess calories; Z68.37 Body mass index [BMI] 37.0-37.9, adult
CPT/HCPCS: 36415; 71045-TC-FY; 73630-TC-RT-FY; 73718-TC-RT; 80048; 80053; 82962; 83036; 83735; 84100; 84443; 85025; 85027; 85610; 85651; 85730; 86140; 86850; 86900; 86901; 87040; 93005; 99285-25; G0480; J1644

== ENCOUNTER 2023-10-03 17:18 | Inpatient (IN) | payer OTHER ==
[2023-10-03] MEDS ORDERED: VANCOMYCIN 1,000 MG VIAL (RESTRICTED TO ID ONLY) ONE (18:31)
[2023-10-03] MEDS ORDERED: CEFEPIME HCL 2 GM VIAL (RESTRICTED TO ID) ONE (18:31)
[2023-10-03] MEDS: CEFEPIME HCL 2 GM VIAL (RESTRICTED TO ID) IVPB ONE (18:51)
[2023-10-03 18:54] LABS: HEMATOCRIT 36.7 % (35.4-49); HEMOGLOBIN 12.6 G/dL (11.7-16.9); MCHC 34.4 g/dl (32.0-35.9); MEAN CELL VOLUME 81.4 fl (80-96); MEAN PLT VOLUME 7.9 fl (7.5-11.1); PLATELET COUNT 193.6 10^3/uL (134-434); RBC 4.51 10^6/uL (4.00-5.60); RDW 15.7 % (11.9-15.9); WHITE BLOOD COUNT 8.9 10^3/uL (4.0-10.8)
[2023-10-03] MEDS: PIPERACILLIN/TAZOB 4.5 GM 4.5 GM in DEXTROSE 5%-WATER 100 ML IVPB ONE (19:03)
[2023-10-03 19:05] LABS: INR 1.06 (0.83-1.09); PROTHROMBIN TIME (PATIENT) 12.1 SEC (9.7-13.0)
[2023-10-03 19:07] LABS: ACTIVATED PTT 33.2 SECONDS (25.2-36.5); PLATELET ESTIMATE ADEQUATE
[2023-10-03 19:16] LABS: ALBUMIN 4.1 g/dl (3.4-5.0); BILIRUBIN,TOTAL 1.1 mg/dl (0.2-1); CALCIUM 8.9 mg/dl (8.5-10.1); CREATININE 1.1 mg/dl (0.6-1.3); POTASSIUM 3.7 mmol/L (3.5-5.1); TOT PROT 6.5 g/dl (6.4-8.2)
[2023-10-03] MEDS: VANCOMYCIN 1,000 MG in DEXTROSE 5%-WATER - 250 ML IVPB ONE (19:30)
[2023-10-03 19:41] LABS: ERYTHROCYTE SEDIMENTATION RATE 38 mm/hr (0-20)
[2023-10-03] MEDS ORDERED: ACETAMINOPHEN 325 MG TABLET (FP) PO PRN (19:51)
[2023-10-03 21:58] VITALS: BMI 36.3
[2023-10-03] MEDS: ENOXAPARIN NA (PORCINE) 40 MG/0.4 ML DISP.SYRIN SQ SCH (22:50)
[2023-10-03] MEDS: LISINOPRIL 20 MG TABLET PO SCH (22:50)
[2023-10-04] MEDS: LEVOTHYROXINE NA 150 MCG TABLET PO SCH (06:02)
[2023-10-04 08:40] LABS: ANION GAP 9 mmol/L (4-13); CALCIUM 8.6 mg/dl (8.5-10.1); CHLORIDE 102 mmol/L (98-107); CO2 26 mmol/L (21-32); GLUCOSE,RANDOM 212 mg/dl (74-106); SODIUM 137 mmol/L (136-145)
[2023-10-04] MEDS: INSULIN ASPART SLIDING SCALE (NOVOLOG) 1 VIAL SQ SCH (09:20)
[2023-10-04 09:32] LABS: BASO % 0.5 % (0-2.0); EOS % 2.5 % (0-4.5); HEMATOCRIT 35.2 % (35.4-49); HEMOGLOBIN 12.3 GM/dL (11.7-16.9); LYMPH % 15.3 % (8-40); MCH 27.7 pg (25.7-33.7); MEAN CELL VOLUME 79.1 fl (80-96); MEAN PLT VOLUME 7.9 fl (7.5-11.1); MONO % 8.2 % (3.8-10.2); NEUT % 73.5 % (42.8-82.8); PLATELET COUNT 199 10^3/uL (134-434); RBC 4.45 M/mm3 (4.00-5.60); RDW 15.5 % (11.9-15.9); WHITE BLOOD COUNT 7.8 K/mm3 (4.0-10.0)
[2023-10-04] MEDS: amLODIPine BESYLATE 10 MG TABLET (FP) PO SCH (10:02)
[2023-10-04] MEDS: ROSUVASTATIN CA 20 MG TABLET PO SCH (10:02)
[2023-10-04] MEDS: ASPIRIN COATED 81 MG TABLET.EC PO SCH (10:02)
[2023-10-04] MEDS: CEFEPIME 2 GM in DEXTROSE 5%-WATER 100 ML IVPB SCH (12:33)
[2023-10-04] MEDS: sitaGLIPtin PHOSPHATE 50 MG TABLET PO SCH (15:04)
[2023-10-04] MEDS: CEFEPIME HCL 2 GM VIAL (RESTRICTED TO ID) IVPB SCH (17:20)
[2023-10-04] MEDS: COLLAGENASE CLOSTRIDIUM HIST. 30 GRAMS TUBE TP SCH ×2 (17:20→17:34)
[2023-10-04] MEDS: metFORMIN HCL 500 MG TABLET (FP) PO SCH (17:32)
[2023-10-04] MEDS ORDERED: CEFEPIME HCL 2 GM VIAL (RESTRICTED TO ID) IVPB SCH (18:00)
[2023-10-04] MEDS ORDERED: VANCOMYCIN 1,000 MG in DEXTROSE 5%-WATER - 250 ML IVPB SCH (20:00)
[2023-10-04] MEDS ORDERED: VANCOMYCIN/WATER FOR INJ (PEG) 1,000 MG/200 ML BAG IVPB ONE (20:00)
[2023-10-04] MEDS: CEFEPIME 1 GM in DEXTROSE 5%-WATER 100 ML IVPB SCH (20:59)
[2023-10-04] MEDS ORDERED: CEFEPIME HCL 1 GM VIAL (RESTRICTED TO ID) IVPB SCH (22:00)
[2023-10-05 09:02] LABS: ALBUMIN 3.8 g/dl (3.4-5.0); ALK PHOS 55 U/L (45-117); ANION GAP 9 mmol/L (4-13); CALCIUM 8.7 mg/dl (8.5-10.1); CHLORIDE 100 mmol/L (98-107); CO2 29 mmol/L (21-32); GLUCOSE,RANDOM 218 mg/dl (74-106); POTASSIUM 4.1 mmol/L (3.5-5.1); SGOT/AST 12 U/L (15-37); SGPT/ALT 14 U/L (7-52); SODIUM 138 mmol/L (136-145); TOT PROT 6.1 g/dl (6.4-8.2)
[2023-10-05 09:43] LABS: BASO % 0.5 % (0-2.0); EOS % 2.8 % (0-4.5); HEMATOCRIT 35.6 % (35.4-49); HEMOGLOBIN 12.8 GM/dL (11.7-16.9); LYMPH % 13.8 % (8-40); MCH 28.3 pg (25.7-33.7); MEAN CELL VOLUME 78.5 fl (80-96); MEAN PLT VOLUME 7.9 fl (7.5-11.1); MONO % 6.9 % (3.8-10.2); PLATELET COUNT 216 10^3/uL (134-434); RBC 4.53 M/mm3 (4.00-5.60); RDW 15.7 % (11.9-15.9); WHITE BLOOD COUNT 7.2 K/mm3 (4.0-10.0)
[2023-10-06] MEDS: EMPAGLIFLOZIN (JARDIANCE) 25 MG TABLET PO SCH (12:34)
[2023-10-07 00:54] VITALS: RESP 19
[2023-10-07 09:49] LABS: ALBUMIN 3.9 g/dl (3.4-5.0); ALK PHOS 65 U/L (45-117); ANION GAP 10 mmol/L (4-13); BILIRUBIN,TOTAL 0.8 mg/dl (0.2-1); CALCIUM 8.8 mg/dl (8.5-10.1); CHLORIDE 101 mmol/L (98-107); CO2 26 mmol/L (21-32); CREATININE 0.9 mg/dl (0.6-1.3); GLUCOSE,RANDOM 188 mg/dl (74-106); SGOT/AST 14 U/L (15-37); SGPT/ALT 13 U/L (7-52); SODIUM 137 mmol/L (136-145); TOT PROT 6.2 g/dl (6.4-8.2); URIC ACID 5.7 mg/dl (2.6-7.2)
[2023-10-07 10:45] LABS: HEMATOCRIT 37.7 % (35.4-49); HEMOGLOBIN 12.8 G/dL (11.7-16.9); MCH 27.7 pg (25.7-33.7); MEAN CELL VOLUME 81.5 fl (80-96); MEAN PLT VOLUME 8.4 fl (7.5-11.1); PLATELET COUNT 193.6 10^3/uL (134-434); RBC 4.63 10^6/uL (4.00-5.60); RDW 15.3 % (11.9-15.9); WHITE BLOOD COUNT 7.7 10^3/uL (4.0-10.8)
[2023-10-07 14:47] VITALS: BP 158/72; PULSE 62; TEMP 98.5
== END 2023-10-08 10:49 | disposition home or self-care (01) | DRG 638 ==
LOC: FER 17:18 → FM/S 18:51
PROVIDERS: ADMIT Internal Medicine
DX: E11.621 Type 2 diabetes mellitus with foot ulcer (principal); L03.115 Cellulitis of right lower limb; L97.519 Non-pressure chronic ulcer of other part of right foot with unspecified severity; I10 Essential (primary) hypertension; E78.5 Hyperlipidemia, unspecified; E11.42 Type 2 diabetes mellitus with diabetic polyneuropathy; E03.9 Hypothyroidism, unspecified; E11.65 Type 2 diabetes mellitus with hyperglycemia; E66.9 Obesity, unspecified; Z79.84 Long term (current) use of oral hypoglycemic drugs
CPT/HCPCS: 36415; 73630-TC-RT-FY; 73718-TC-RT; 80048; 80053; 82962; 83735; 84439; 84443; 84550; 85025; 85610; 85651; 85730; 86140; 87040; 87070; 87076; 87186; 87205; 93005; 99285-25

== ENCOUNTER 2024-05-06 06:05 | Observation (INO) | payer OTHER ==
[2024-05-06 09:25] LABS: BASO % 0.6 % (0-2.0); HEMATOCRIT 39.7 % (35.4-49); HEMOGLOBIN 13.6 GM/dL (11.7-16.9); LYMPH % 16.6 % (8-40); MCH 27.3 pg (25.7-33.7); MCHC 34.2 g/dl (32.0-35.9); MEAN CELL VOLUME 79.9 fl (80-96); MEAN PLT VOLUME 7.7 fl (7.5-11.1); MONO % 5.9 % (3.8-10.2); NEUT % 75.9 % (42.8-82.8); PLATELET COUNT 217 10^3/uL (134-434); RBC 4.97 M/mm3 (4.00-5.60); RDW 16.8 % (11.9-15.9); WHITE BLOOD COUNT 8.5 K/mm3 (4.0-10.0)
[2024-05-06 09:43] LABS: POTASSIUM 3.9 mmol/L (3.5-5.1)
[2024-05-06 09:44] LABS: BLOOD UREA NITROGEN 18.6 mg/dL (7-18); CALCIUM 8.7 mg/dL (8.5-10.1)
[2024-05-06 09:48] LABS: CREATININE 1.2 mg/dL (0.55-1.3)
[2024-05-06 09:49] LABS: BILIRUBIN,TOTAL 0.9 mg/dL (0.2-1)
[2024-05-06 09:50] LABS: TOT PROT 7.5 g/dl (6.4-8.2)
[2024-05-06] MEDS ORDERED: BUPIVACAINE HCL/PF 0.5% (5MG/ML) 10 ML VIAL ONE (10:26)
[2024-05-06] MEDS ORDERED: LIDOCAINE HCL 1%, 10 MG/ML (20ML VIAL) ONE (10:26)
[2024-05-06 10:27] LABS: ERYTHROCYTE SEDIMENTATION RATE 23 mm/hr (0-20)
[2024-05-06] MEDS ORDERED: MIDAZOLAM HCL 2 MG/2 ML SINGLE DOSE VIAL ONE (10:54)
[2024-05-06] MEDS ORDERED: PROPOFOL 20 ML ONE (11:00)
[2024-05-06] MEDS ORDERED: LACTATED RINGERS SOLUTION 1,000 ML IV SCH (11:30)
[2024-05-06] MEDS ORDERED: ONDANSETRON 4 MG/2 ML VIAL IVPUSH PRN (11:30)
[2024-05-06 13:47] VITALS: BMI 33.9
[2024-05-06] MEDS: CEFTRIAXONE 2 GM-D5W BAG 2 GM/50 ML BAG IVPB SCH (17:56)
[2024-05-06] MEDS ORDERED: LISINOPRIL 20 MG TABLET PO SCH (22:00)
[2024-05-06] MEDS: LISINOPRIL 20 MG TABLET PO SCH (22:35)
[2024-05-06] MEDS: INSULIN ASPART SLIDING SCALE (NOVOLOG) 1 VIAL SQ SCH (22:36)
[2024-05-07] MEDS: LEVOTHYROXINE NA 150 MCG TABLET PO SCH (06:19)
[2024-05-07] MEDS ORDERED: LEVOTHYROXINE NA 100 MCG TABLET (FP) PO SCH (07:00)
[2024-05-07] MEDS: amLODIPine BESYLATE 10 MG TABLET (FP) PO SCH (09:05)
[2024-05-07 09:11] LABS: HEMATOCRIT 38.1 % (35.4-49); HEMOGLOBIN 13.1 GM/dL (11.7-16.9); MCH 27.4 pg (25.7-33.7); MCHC 34.5 g/dl (32.0-35.9); MEAN CELL VOLUME 79.4 fl (80-96); MEAN PLT VOLUME 7.6 fl (7.5-11.1); PLATELET COUNT 197 10^3/uL (134-434); RBC 4.79 M/mm3 (4.00-5.60); RDW 16.5 % (11.9-15.9); WHITE BLOOD COUNT 8.2 K/mm3 (4.0-10.0)
[2024-05-07 09:34] LABS: POTASSIUM 3.7 mmol/L (3.5-5.1)
[2024-05-07 09:39] LABS: ALBUMIN 3.8 g/dl (3.4-5.0); BLOOD UREA NITROGEN 14.5 mg/dL (7-18)
[2024-05-07 09:40] LABS: CALCIUM 8.6 mg/dL (8.5-10.1)
[2024-05-07 09:41] LABS: MAGNESIUM 1.8 mg/dL (1.8-2.4)
[2024-05-07 09:42] LABS: PHOSPHOROUS 2.7 mg/dL (2.5-4.9)
[2024-05-07 09:43] LABS: BILIRUBIN,TOTAL 1.1 mg/dL (0.2-1); TOT PROT 7.1 g/dl (6.4-8.2)
[2024-05-07] MEDS ORDERED: amLODIPine BESYLATE 10 MG TABLET (FP) PO SCH (10:00)
[2024-05-07] MEDS: COLLAGENASE CLOSTRIDIUM HIST. 30 GRAMS TUBE TP SCH (11:36)
[2024-05-07] MEDS: MAGNESIUM OXIDE 400 MG TABLET (FP) PO ONE ×2 (13:38→13:39)
[2024-05-07] MEDS: metFORMIN HCL 500 MG TABLET (FP) PO SCH (16:52)
[2024-05-07] MEDS: ROSUVASTATIN CA 20 MG TABLET PO SCH (21:56)
[2024-05-07] MEDS ORDERED: ROSUVASTATIN CA 20 MG TABLET PO SCH (22:00)
[2024-05-08] MEDS: metFORMIN HCL 500 MG TABLET (FP) PO SCH ×2 (06:44→18:08)
[2024-05-08 09:05] LABS: BASO % 0.5 % (0-2.0); EOS % 2.3 % (0-4.5); HEMATOCRIT 37.7 % (35.4-49); HEMOGLOBIN 13.1 GM/dL (11.7-16.9); LYMPH % 19.2 % (8-40); MCH 27.4 pg (25.7-33.7); MCHC 34.7 g/dl (32.0-35.9); MEAN CELL VOLUME 78.9 fl (80-96); MEAN PLT VOLUME 7.8 fl (7.5-11.1); MONO % 7.8 % (3.8-10.2); NEUT % 70.2 % (42.8-82.8); PLATELET COUNT 194 10^3/uL (134-434); RBC 4.78 M/mm3 (4.00-5.60); RDW 16.5 % (11.9-15.9); WHITE BLOOD COUNT 7.3 K/mm3 (4.0-10.0)
[2024-05-08 09:31] LABS: ALBUMIN 3.6 g/dl (3.4-5.0)
[2024-05-08 09:32] LABS: TOT PROT 6.8 g/dl (6.4-8.2)
[2024-05-08 09:34] LABS: CALCIUM 8.6 mg/dL (8.5-10.1); MAGNESIUM 2.1 mg/dL (1.8-2.4)
[2024-05-08 14:58] VITALS: PULSE 79; RESP 18
[2024-05-09 06:05] VITALS: BP 157/79; TEMP 98.6
[2024-05-09 09:01] LABS: BASO % 0.5 % (0-2.0); EOS % 2.9 % (0-4.5); HEMATOCRIT 39.1 % (35.4-49); HEMOGLOBIN 13.5 GM/dL (11.7-16.9); LYMPH % 20.4 % (8-40); MCH 27.4 pg (25.7-33.7); MCHC 34.5 g/dl (32.0-35.9); MEAN CELL VOLUME 79.3 fl (80-96); MEAN PLT VOLUME 7.3 fl (7.5-11.1); MONO % 6.4 % (3.8-10.2); NEUT % 69.8 % (42.8-82.8); PLATELET COUNT 207 10^3/uL (134-434); RBC 4.93 M/mm3 (4.00-5.60); RDW 16.5 % (11.9-15.9)
[2024-05-09 09:31] LABS: POTASSIUM 4.2 mmol/L (3.5-5.1)
[2024-05-09 09:32] LABS: CALCIUM 8.6 mg/dL (8.5-10.1)
[2024-05-09 09:33] LABS: ALBUMIN 3.7 g/dl (3.4-5.0); BLOOD UREA NITROGEN 15.2 mg/dL (7-18); MAGNESIUM 2.1 mg/dL (1.8-2.4)
[2024-05-10] MEDS ORDERED: levoFLOXacin 750 MG TABLET PO SCH (06:00)
== END 2024-05-09 16:06 | disposition home health service (06) ==
LOC: JER 06:05 → JASU-SURG 08:43 → JERBED 11:34 → J8W 12:22
PROVIDERS: ADMIT Internal Medicine; ATTEND Nurse Practitioner Acute Care
PROC: 0QBN3ZX Excision of Right Metatarsal, Percutaneous Approach, Diagnostic (ICD-10-PCS; 2024-05-06)
PROC: 3E03329 Introduction of Other Anti-infective into Peripheral Vein, Percutaneous Approach (ICD-10-PCS; principal; 2024-05-06 11:11)
PROC: 02HV33Z Insertion of Infusion Device into Superior Vena Cava, Percutaneous Approach (ICD-10-PCS; 2024-05-09)
PROC: B518ZZA Fluoroscopy of Superior Vena Cava, Guidance (ICD-10-PCS; 2024-05-09)
DX: M86.8X7 Other osteomyelitis, ankle and foot (principal); S91.301D Unspecified open wound, right foot, subsequent encounter; E78.5 Hyperlipidemia, unspecified; I10 Essential (primary) hypertension; E13.621 Other specified diabetes mellitus with foot ulcer; Y99.8 Other external cause status; G62.9 Polyneuropathy, unspecified
CPT/HCPCS: 36415; 36569; 73630-TC-RT-FY; 80053; 82550; 83735; 84100; 85025; 85027; 85651; 86140; 87040; 87070; 87075; 87076; 87186; 87205; 93005; 93010; 94760; 99285-25; G0378; J0878

== ENCOUNTER 2024-05-10 15:37 | Day surgery (SDC) | payer OTHER ==
[2024-05-10] MEDS: SODIUM CHLORIDE IVPB SCH (16:15)
[2024-05-10] MEDS: DAPTOMYCIN IVPB SCH (16:15)
[2024-05-10 17:26] VITALS: BP 130/72; PULSE 71; RESP 18; TEMP 98.5
== END 2024-05-10 17:26 | disposition home or self-care (01) ==
LOC: FM/S 15:37 → FINFUSION 15:37
PROVIDERS: ATTEND Internal Medicine Infectious Disease
DX: E11.621 Type 2 diabetes mellitus with foot ulcer (principal); L97.519 Non-pressure chronic ulcer of other part of right foot with unspecified severity; M86.8X7 Other osteomyelitis, ankle and foot
CPT/HCPCS: 96365; J0878

== ENCOUNTER 2024-05-13 15:57 | Day surgery (SDC) | payer OTHER ==
[2024-05-13] MEDS ORDERED: REFRIGERATED ANITBIOTICS ONE (16:21)
[2024-05-13] MEDS: DAPTOMYCIN IVPB ONE (16:28)
[2024-05-13] MEDS: SODIUM CHLORIDE IVPB ONE (16:28)
[2024-05-13 17:25] VITALS: BP 145/87; PULSE 70; RESP 18; TEMP 98.2
== END 2024-05-13 17:25 | disposition home or self-care (01) ==
LOC: FINFUSION 15:57 → FM/S 15:58 → FINFUSION 17:25
PROVIDERS: ATTEND Internal Medicine Infectious Disease
DX: E11.621 Type 2 diabetes mellitus with foot ulcer (principal); L97.519 Non-pressure chronic ulcer of other part of right foot with unspecified severity; M86.8X7 Other osteomyelitis, ankle and foot
CPT/HCPCS: J0878

== ENCOUNTER 2024-06-03 15:52 | Day surgery (SDC) | payer OTHER ==
[2024-06-03] MEDS ORDERED: REFRIGERATED ANITBIOTICS ONE (16:01)
[2024-06-03] MEDS: DAPTOMYCIN IVPB ONE (16:13)
[2024-06-03] MEDS: SODIUM CHLORIDE IVPB ONE (16:13)
[2024-06-03 17:48] VITALS: BP 132/82; PULSE 66; RESP 18; TEMP 98.1
== END 2024-06-03 17:49 | disposition home or self-care (01) ==
LOC: FINFUSION 15:52 → FM/S 15:53 → FINFUSION 17:49
PROVIDERS: ATTEND Internal Medicine Infectious Disease
DX: E11.621 Type 2 diabetes mellitus with foot ulcer (principal); L97.519 Non-pressure chronic ulcer of other part of right foot with unspecified severity; M86.8X7 Other osteomyelitis, ankle and foot
CPT/HCPCS: 96365; J0878

== ENCOUNTER 2024-06-04 15:44 | Day surgery (SDC) | payer OTHER ==
[2024-06-04] MEDS ORDERED: REFRIGERATED ANITBIOTICS ONE (16:01)
[2024-06-04] MEDS: DAPTOMYCIN IVPB ONE (16:07)
[2024-06-04 17:05] VITALS: BP 132/77; PULSE 60; RESP 18; TEMP 98.5
== END 2024-06-04 17:05 | disposition home or self-care (01) ==
LOC: FM/S 15:44 → FINFUSION 15:44
PROVIDERS: ATTEND Internal Medicine Infectious Disease
DX: E11.621 Type 2 diabetes mellitus with foot ulcer (principal); L97.519 Non-pressure chronic ulcer of other part of right foot with unspecified severity; M86.8X7 Other osteomyelitis, ankle and foot
CPT/HCPCS: 96365; J0878

== ENCOUNTER 2024-06-05 15:22 | Day surgery (SDC) | payer OTHER ==
[2024-06-05] MEDS: DAPTOMYCIN IVPB ONE (15:48)
[2024-06-05 18:01] VITALS: BP 137/83; PULSE 81; RESP 18; TEMP 98.2
== END 2024-06-05 18:10 | disposition home or self-care (01) ==
LOC: FM/S 15:22 → FINFUSION 15:22
PROVIDERS: ATTEND Internal Medicine Infectious Disease
DX: E11.621 Type 2 diabetes mellitus with foot ulcer (principal); L97.519 Non-pressure chronic ulcer of other part of right foot with unspecified severity; M86.8X7 Other osteomyelitis, ankle and foot
CPT/HCPCS: 96365; J0878

== ENCOUNTER 2024-06-06 14:34 | Day surgery (SDC) | payer OTHER ==
[2024-06-06] MEDS ORDERED: REFRIGERATED ANITBIOTICS ONE ×2 (14:41→17:49)
[2024-06-06] MEDS: DAPTOMYCIN IVPB ONE (16:00)
[2024-06-06] MEDS: SODIUM CHLORIDE IVPB ONE (16:00)
[2024-06-06 18:14] VITALS: BP 135/72; PULSE 70; RESP 16; TEMP 98.2
== END 2024-06-06 16:55 | disposition home or self-care (01) ==
LOC: FM/S 14:34 → FINFUSION 14:34
PROVIDERS: ATTEND Internal Medicine Infectious Disease
DX: E11.621 Type 2 diabetes mellitus with foot ulcer (principal); L97.519 Non-pressure chronic ulcer of other part of right foot with unspecified severity; M86.8X7 Other osteomyelitis, ankle and foot
CPT/HCPCS: 96365; J0878

== ENCOUNTER 2024-06-07 15:45 | Day surgery (SDC) | payer OTHER ==
[2024-06-07] MEDS ORDERED: REFRIGERATED ANITBIOTICS ONE (15:53)
[2024-06-07] MEDS: DAPTOMYCIN IVPB SCH (16:07)
[2024-06-07] MEDS: SODIUM CHLORIDE IVPB SCH (16:07)
[2024-06-07 17:36] VITALS: BP 132/76; PULSE 70; RESP 18; TEMP 98.2
== END 2024-06-07 17:37 | disposition home or self-care (01) ==
LOC: FINFUSION 15:45 → FM/S 15:45 → FINFUSION 17:37
PROVIDERS: ATTEND Internal Medicine Infectious Disease
DX: E11.621 Type 2 diabetes mellitus with foot ulcer (principal); L97.519 Non-pressure chronic ulcer of other part of right foot with unspecified severity; M86.8X7 Other osteomyelitis, ankle and foot
CPT/HCPCS: 96365; J0878

== ENCOUNTER 2024-06-08 16:46 | Day surgery (SDC) | payer OTHER ==
[2024-06-08] MEDS ORDERED: REFRIGERATED ANITBIOTICS ONE (16:52)
[2024-06-08] MEDS: DAPTOMYCIN IVPB ONE (17:15)
[2024-06-08 19:01] VITALS: BP 130/70; PULSE 71; RESP 16; TEMP 98.2
== END 2024-06-08 18:12 | disposition home or self-care (01) ==
LOC: FINFUSION 16:46 → FM/S 16:48 → FINFUSION 18:12
PROVIDERS: ATTEND Internal Medicine Infectious Disease
DX: E11.621 Type 2 diabetes mellitus with foot ulcer (principal); L97.519 Non-pressure chronic ulcer of other part of right foot with unspecified severity; M86.8X7 Other osteomyelitis, ankle and foot
CPT/HCPCS: 96365; J0878

== ENCOUNTER 2024-06-09 15:48 | Day surgery (SDC) | payer OTHER ==
[2024-06-09] MEDS ORDERED: REFRIGERATED ANITBIOTICS ONE (16:03)
[2024-06-09] MEDS: DAPTOMYCIN IVPB ONE (16:16)
[2024-06-09 16:47] VITALS: BP 140/81; PULSE 68; RESP 18; TEMP 98.2
== END 2024-06-09 16:47 | disposition home or self-care (01) ==
LOC: FINFUSION 15:48 → FM/S 15:48 → FINFUSION 16:47
PROVIDERS: ATTEND Internal Medicine Infectious Disease
DX: E11.621 Type 2 diabetes mellitus with foot ulcer (principal); L97.519 Non-pressure chronic ulcer of other part of right foot with unspecified severity; M86.8X7 Other osteomyelitis, ankle and foot
CPT/HCPCS: 96365; J0878

== ENCOUNTER 2024-06-10 15:46 | Day surgery (SDC) | payer OTHER ==
[2024-06-10 16:10] VITALS: RESP 16; TEMP 98.2
[2024-06-10] MEDS ORDERED: REFRIGERATED ANITBIOTICS ONE (16:15)
[2024-06-10] MEDS: DAPTOMYCIN IVPB ONE (16:15)
[2024-06-10 17:05] VITALS: BP 148/78; PULSE 76
== END 2024-06-10 17:06 | disposition home or self-care (01) ==
LOC: FINFUSION 15:46 → FM/S 15:47 → FINFUSION 17:06
PROVIDERS: ATTEND Internal Medicine Infectious Disease
DX: E11.621 Type 2 diabetes mellitus with foot ulcer (principal); L97.519 Non-pressure chronic ulcer of other part of right foot with unspecified severity; M86.8X7 Other osteomyelitis, ankle and foot
CPT/HCPCS: 96365; J0878

== ENCOUNTER 2024-06-11 15:50 | Day surgery (SDC) | payer OTHER ==
[2024-06-11] MEDS ORDERED: REFRIGERATED ANITBIOTICS ONE (16:00)
[2024-06-11] MEDS: DAPTOMYCIN IVPB ONE (16:01)
[2024-06-11 16:58] VITALS: BP 134/67; PULSE 76; RESP 18; TEMP 97.9
== END 2024-06-11 17:08 | disposition home or self-care (01) ==
LOC: FINFUSION 15:50 → FM/S 15:51 → FINFUSION 17:08
PROVIDERS: ATTEND Internal Medicine Infectious Disease
DX: E11.621 Type 2 diabetes mellitus with foot ulcer (principal); L97.519 Non-pressure chronic ulcer of other part of right foot with unspecified severity; M86.8X7 Other osteomyelitis, ankle and foot
CPT/HCPCS: 96365; J0878

== ENCOUNTER 2024-06-12 15:08 | Day surgery (SDC) | payer OTHER ==
[2024-06-12] MEDS ORDERED: REFRIGERATED ANITBIOTICS ONE ×2 (15:24→15:25)
[2024-06-12] MEDS: DAPTOMYCIN IVPB ONE (15:37)
[2024-06-12 16:31] VITALS: BP 144/78; PULSE 68; RESP 16; TEMP 98.1
== END 2024-06-12 16:10 | disposition home or self-care (01) ==
LOC: FINFUSION 15:08 → FM/S 15:09 → FINFUSION 16:10
PROVIDERS: ATTEND Internal Medicine Infectious Disease
DX: E11.621 Type 2 diabetes mellitus with foot ulcer (principal); L97.519 Non-pressure chronic ulcer of other part of right foot with unspecified severity; M86.8X7 Other osteomyelitis, ankle and foot
CPT/HCPCS: 96365; J0878

== ENCOUNTER 2024-06-13 15:05 | Day surgery (SDC) | payer OTHER ==
[2024-06-13] MEDS: DAPTOMYCIN IVPB ONE (16:30)
[2024-06-13 17:15] VITALS: BP 132/72; PULSE 70; RESP 18; TEMP 98.4
== END 2024-06-13 17:15 | disposition home or self-care (01) ==
LOC: FM/S 15:05 → FINFUSION 15:05
PROVIDERS: ATTEND Internal Medicine Infectious Disease
DX: E11.621 Type 2 diabetes mellitus with foot ulcer (principal); L97.519 Non-pressure chronic ulcer of other part of right foot with unspecified severity; M86.8X7 Other osteomyelitis, ankle and foot
CPT/HCPCS: 96365; J0878

== ENCOUNTER 2024-06-15 16:48 | Day surgery (SDC) | payer OTHER ==
[2024-06-15] MEDS ORDERED: REFRIGERATED ANITBIOTICS ONE (17:07)
[2024-06-15] MEDS: DAPTOMYCIN IVPB ONE (17:10)
[2024-06-15 17:53] VITALS: BP 144/79; PULSE 71; RESP 20; TEMP 98.2
== END 2024-06-15 17:50 | disposition home or self-care (01) ==
LOC: FINFUSION 16:48 → FM/S 16:49 → FINFUSION 17:50
PROVIDERS: ATTEND Internal Medicine Infectious Disease
DX: E11.621 Type 2 diabetes mellitus with foot ulcer (principal); L97.519 Non-pressure chronic ulcer of other part of right foot with unspecified severity; M86.8X7 Other osteomyelitis, ankle and foot
CPT/HCPCS: 96365; J0878

== ENCOUNTER 2024-06-16 15:32 | Day surgery (SDC) | payer OTHER ==
[2024-06-16] MEDS ORDERED: REFRIGERATED ANITBIOTICS ONE (15:53)
[2024-06-16] MEDS: DAPTOMYCIN IVPB ONE (16:15)
[2024-06-16 17:23] VITALS: BP 131/70; PULSE 75; RESP 18; TEMP 98
== END 2024-06-16 17:23 | disposition home or self-care (01) ==
LOC: FINFUSION 15:32 → FM/S 15:34 → FINFUSION 17:23
PROVIDERS: ATTEND Internal Medicine Infectious Disease
DX: E11.621 Type 2 diabetes mellitus with foot ulcer (principal); L97.519 Non-pressure chronic ulcer of other part of right foot with unspecified severity; M86.8X7 Other osteomyelitis, ankle and foot
CPT/HCPCS: 96365; J0878

== ENCOUNTER 2024-06-17 16:15 | Day surgery (SDC) | payer OTHER ==
[2024-06-17] MEDS ORDERED: REFRIGERATED ANITBIOTICS ONE (16:43)
[2024-06-17] MEDS: DAPTOMYCIN IVPB ONE (17:26)
[2024-06-17 17:52] VITALS: BP 140/80; PULSE 70; RESP 18; TEMP 98.2
== END 2024-06-17 17:52 | disposition home or self-care (01) ==
LOC: FINFUSION 16:15 → FM/S 16:16 → FINFUSION 17:52
PROVIDERS: ATTEND Internal Medicine Infectious Disease
DX: E11.621 Type 2 diabetes mellitus with foot ulcer (principal); L97.519 Non-pressure chronic ulcer of other part of right foot with unspecified severity; M86.8X7 Other osteomyelitis, ankle and foot
CPT/HCPCS: 96365; J0878

== ENCOUNTER 2024-06-19 15:24 | Day surgery (SDC) | payer OTHER ==
[2024-06-19] MEDS ORDERED: REFRIGERATED ANITBIOTICS ONE (15:47)
[2024-06-19] MEDS: DAPTOMYCIN IVPB ONE (16:30)
[2024-06-19] MEDS: SODIUM CHLORIDE IVPB ONE (16:30)
[2024-06-19 16:50] VITALS: BP 148/73; PULSE 81; RESP 18; TEMP 98.1
== END 2024-06-19 17:32 | disposition home or self-care (01) ==
LOC: FM/S 15:24 → FINFUSION 15:24
PROVIDERS: ATTEND Internal Medicine Infectious Disease
DX: E11.621 Type 2 diabetes mellitus with foot ulcer (principal); L97.519 Non-pressure chronic ulcer of other part of right foot with unspecified severity; M86.8X7 Other osteomyelitis, ankle and foot
CPT/HCPCS: 96365; J0878

== ENCOUNTER 2024-10-23 10:31 | Inpatient (IN) | payer OTHER ==
[2024-10-23 11:25] LABS: ABSOLUTE IMMATURE GRANULOCYTES 0.03 x10^3/uL (0.0-0.031); BASOPHILS # 0.06 x10^3/uL (0.01-0.08); EOSINOPHIL % 1.2 % (0.8-7.0); EOSINOPHILS # 0.11 x10^3/uL (0.04-0.54); MCHC 33.7 g/dl (32.3-36.5); MEAN CELL VOLUME 79.4 fl (79.0-92.2); MEAN PLT VOLUME 9.0 fl (9.4-12.4); MONOCYTE # 0.76 x10^3/uL (0.30-0.82); MONOCYTE % 8.2 % (5.3-12.2); RDW 15.4 % (12.2-16.4)
[2024-10-23 11:34] LABS: INR 1.19 (0.83-1.09); PROTHROMBIN TIME (PATIENT) 13.0 SEC (9.7-13.0)
[2024-10-23 11:37] LABS: ACTIVATED PTT 30.3 SECONDS (25.2-36.5)
[2024-10-23 12:26] LABS: CO2 23.0 mmol/L (21-32); GLUCOSE,RANDOM 169.0 mg/dL (74-106)
[2024-10-23] MEDS ORDERED: MEROPENEM 1 GM VIAL (RESTRICTED TO ID) IVPB ONE (12:26)
[2024-10-23 12:29] LABS: SGOT/AST 16.0 U/L (15-37); SGPT/ALT 22.0 U/L (13-61)
[2024-10-23 12:30] LABS: CREATININE 1.2 mg/dL (0.55-1.3); TOT PROT 7.8 g/dl (6.4-8.2)
[2024-10-23 12:31] LABS: ALK PHOS 74.0 U/L (45-117)
[2024-10-23] MEDS: MEROPENEM 1 GM in SODIUM CHLORIDE 100 ML IVPB ONE (12:41)
[2024-10-23 13:54] LABS: HCV DIAGNOSTIC IN-HOUSE W/RFLX NON-REACTIVE (NONREACTIVE)
[2024-10-23 13:58] LABS: HIV INTERPRETATION NEGATIVE (NEGATIVE)
[2024-10-23] MEDS: VANCOMYCIN HCL IN 5 % DEXTROSE 1,500 MG/300 ML BAG IVPB ONE (14:39)
[2024-10-23] MEDS: INSULIN ASPART SLIDING SCALE (NOVOLOG) 1 VIAL SQ SCH (17:50)
[2024-10-23] MEDS: VANCOMYCIN HCL 1,500 MG in SODIUM CHLORIDE 500 ML IVPB ONE (18:10)
[2024-10-23 18:18] VITALS: BMI 34.4
[2024-10-23] MEDS: MEROPENEM 1 GM in DEXTROSE 5%-WATER 100 ML IVPB SCH (20:37)
[2024-10-23] MEDS: ROSUVASTATIN CA 20 MG TABLET PO SCH (21:58)
[2024-10-24] MEDS: VANCOMYCIN PREMIX 1.5 GM 1,500 MG/300 ML BAG IVPB SCH (03:11)
[2024-10-24] MEDS: LEVOTHYROXINE NA 100 MCG TABLET (FP) PO SCH (06:11)
[2024-10-24 07:49] LABS: ABSOLUTE IMMATURE GRANULOCYTES 0.03 x10^3/uL (0.0-0.031); BASOPHILS # 0.03 x10^3/uL (0.01-0.08); EOSINOPHIL % 2.8 % (0.8-7.0); EOSINOPHILS # 0.19 x10^3/uL (0.04-0.54); MCHC 34.1 g/dl (32.3-36.5); MEAN CELL VOLUME 78.8 fl (79.0-92.2); MEAN PLT VOLUME 9.5 fl (9.4-12.4); MONOCYTE # 0.58 x10^3/uL (0.30-0.82); MONOCYTE % 8.6 % (5.3-12.2); RDW 15.3 % (12.2-16.4)
[2024-10-24 08:13] LABS: CO2 29.0 mmol/L (21-32)
[2024-10-24 08:14] LABS: GLUCOSE,RANDOM 161.0 mg/dL (74-106)
[2024-10-24 08:16] LABS: CREATININE 1.1 mg/dL (0.55-1.3); SGPT/ALT 18.0 U/L (13-61)
[2024-10-24 08:18] LABS: SGOT/AST 14.0 U/L (15-37); TOT PROT 6.7 g/dl (6.4-8.2)
[2024-10-24 08:19] LABS: ALK PHOS 66.0 U/L (45-117)
[2024-10-24] MEDS: LISINOPRIL 20 MG TABLET PO SCH (09:35)
[2024-10-24] MEDS: HYDROCHLOROTHIAZIDE 25 MG TABLET (FP) PO SCH (09:35)
[2024-10-24] MEDS: amLODIPine BESYLATE 10 MG TABLET (FP) PO SCH (09:35)
[2024-10-24] MEDS ORDERED: ENOXAPARIN NA (PORCINE) 40 MG/0.4 ML DISP.SYRIN SQ SCH (10:00)
[2024-10-24] MEDS ORDERED: LISINOPRIL 20 MG TABLET PO SCH (10:00)
[2024-10-25 08:51] LABS: ABSOLUTE IMMATURE GRANULOCYTES 0.02 x10^3/uL (0.0-0.031); BASOPHILS # 0.06 x10^3/uL (0.01-0.08); EOSINOPHIL % 2.4 % (0.8-7.0); EOSINOPHILS # 0.19 x10^3/uL (0.04-0.54); MCHC 33.6 g/dl (32.3-36.5); MEAN CELL VOLUME 79.0 fl (79.0-92.2); MEAN PLT VOLUME 9.4 fl (9.4-12.4); MONOCYTE # 0.63 x10^3/uL (0.30-0.82); MONOCYTE % 7.8 % (5.3-12.2); RDW 15.2 % (12.2-16.4)
[2024-10-25 09:57] LABS: CO2 27.0 mmol/L (21-32); GLUCOSE,RANDOM 152.0 mg/dL (74-106)
[2024-10-25 09:59] LABS: CREATININE 1.1 mg/dL (0.55-1.3)
[2024-10-25 10:00] LABS: SGOT/AST 10.0 U/L (15-37); SGPT/ALT 18.0 U/L (13-61)
[2024-10-25 10:01] LABS: TOT PROT 7.1 g/dl (6.4-8.2)
[2024-10-25 10:03] LABS: ALK PHOS 69.0 U/L (45-117)
[2024-10-25] MEDS: COLLAGENASE CLOSTRIDIUM HIST. 30 GRAMS TUBE TP SCH (13:11)
[2024-10-25] MEDS: MEROPENEM 1 GM in DEXTROSE 5%-WATER 100 ML IVPB SCH (22:46)
[2024-10-25] MEDS: VANCOMYCIN HCL 1,500 MG in DEXTROSE 5%-WATER - 250 ML IVPB SCH (22:47)
[2024-10-25] MEDS: VANCOMYCIN PREMIX 1.5 GM 1,500 MG/300 ML BAG IVPB SCH (23:05)
[2024-10-26] MEDS: MEROPENEM-0.9% SODIUM CHLORIDE 1 GM/50 ML BAG IVPB SCH (01:26)
[2024-10-26 10:24] LABS: ABSOLUTE IMMATURE GRANULOCYTES 0.04 x10^3/uL (0.0-0.031); BASOPHILS # 0.06 x10^3/uL (0.01-0.08); EOSINOPHIL % 3.0 % (0.8-7.0); EOSINOPHILS # 0.29 x10^3/uL (0.04-0.54); MCHC 33.3 g/dl (32.3-36.5); MEAN CELL VOLUME 79.9 fl (79.0-92.2); MEAN PLT VOLUME 9.6 fl (9.4-12.4); MONOCYTE # 0.67 x10^3/uL (0.30-0.82); MONOCYTE % 6.8 % (5.3-12.2); RDW 15.5 % (12.2-16.4)
[2024-10-26 11:27] LABS: CO2 27.0 mmol/L (21-32); CREATININE 1.3 mg/dL (0.55-1.3); GLUCOSE,RANDOM 186.0 mg/dL (74-106); SGPT/ALT 19.0 U/L (13-61)
[2024-10-26 11:29] LABS: TOT PROT 7.9 g/dl (6.4-8.2)
[2024-10-26 11:30] LABS: ALK PHOS 83.0 U/L (45-117)
[2024-10-26 11:31] LABS: SGOT/AST 16.0 U/L (15-37)
[2024-10-27] MEDS: DEXAMETHASONE SOD PHOSPHATE 4 MG/1 ML VIAL IVPUSH ONE
[2024-10-27] MEDS: BACITRACIN ZINC 15 GM TUBE TOPICAL OINTMENT TP ONE
[2024-10-27] MEDS: DEXTROSE 5%-NORMAL SALINE 1,000 ML IV SCH ×2 (01:25→13:40)
[2024-10-27 09:13] LABS: ABSOLUTE IMMATURE GRANULOCYTES 0.03 x10^3/uL (0.0-0.031); BASOPHILS # 0.04 x10^3/uL (0.01-0.08); EOSINOPHIL % 3.8 % (0.8-7.0); EOSINOPHILS # 0.30 x10^3/uL (0.04-0.54); MCHC 33.2 g/dl (32.3-36.5); MEAN CELL VOLUME 78.7 fl (79.0-92.2); MEAN PLT VOLUME 9.5 fl (9.4-12.4); MONOCYTE # 0.57 x10^3/uL (0.30-0.82); MONOCYTE % 7.3 % (5.3-12.2); RDW 15.1 % (12.2-16.4)
[2024-10-27] MEDS ORDERED: BUPIVACAINE HCL/PF 0.5% (5MG/ML) 10 ML VIAL ONE (09:28)
[2024-10-27] MEDS ORDERED: DEXAMETHASONE SOD PHOSPHATE 4 MG/1 ML VIAL ONE (09:28)
[2024-10-27] MEDS ORDERED: LIDOCAINE HCL 1%, 10 MG/ML (20ML VIAL) ONE (09:28)
[2024-10-27] MEDS ORDERED: MIDAZOLAM HCL 2 MG/2 ML SINGLE DOSE VIAL ONE (09:36)
[2024-10-27] MEDS ORDERED: PROPOFOL 20 ML ONE (09:36)
[2024-10-27 09:47] LABS: CO2 26.0 mmol/L (21-32); GLUCOSE,RANDOM 170.0 mg/dL (74-106)
[2024-10-27 09:50] LABS: CREATININE 1.1 mg/dL (0.55-1.3)
[2024-10-27 09:51] LABS: SGOT/AST 16.0 U/L (15-37); SGPT/ALT 20.0 U/L (13-61)
[2024-10-27 09:52] LABS: TOT PROT 6.9 g/dl (6.4-8.2)
[2024-10-27 09:53] LABS: ALK PHOS 74.0 U/L (45-117)
[2024-10-27 09:54] LABS: INR 1.2 (0.83-1.09); PROTHROMBIN TIME (PATIENT) 13.1 SEC (9.7-13.0)
[2024-10-27] MEDS ORDERED: BENZOIN/ALOE VERA/STORAX/TOLU 58 ML BOTTLE ONE (10:09)
[2024-10-27] MEDS ORDERED: VANCOMYCIN 500 MG VIAL (RESTRICTED TO ID ONLY) ONE (10:13)
[2024-10-27] MEDS ORDERED: ONDANSETRON 4 MG/2 ML VIAL IVPUSH PRN ×2 (10:20→12:17)
[2024-10-27] MEDS ORDERED: PROMETHAZINE HCL 25 MG/1 ML VIAL IVPB PRN ×2 (10:20→12:17)
[2024-10-27] MEDS: LACTATED RINGERS SOLUTION 1,000 ML IV SCH (10:35)
[2024-10-27] MEDS: MEROPENEM 1 GM VIAL (RESTRICTED TO ID) IVPB ONE (10:44)
[2024-10-27] MEDS: BUPIVACAINE HCL/PF 0.5% (5 MG/ML) 30 ML VIAL IJ ONE ×3 (10:45)
[2024-10-27] MEDS: LIDOCAINE HCL 1%, 10 MG/ML (20ML VIAL) INF ONE ×3 (10:45)
[2024-10-27] MEDS: GENTAMICIN SO4 80 MG/2 ML VIAL IVPB ONE ×2 (11:22)
[2024-10-27] MEDS ORDERED: GENTAMICIN SO4 80 MG/2 ML VIAL ONE (11:22)
[2024-10-27 12:40] LABS: ABSOLUTE IMMATURE GRANULOCYTES 0.03 x10^3/uL (0.0-0.031); BASOPHILS # 0.06 x10^3/uL (0.01-0.08); EOSINOPHIL % 2.6 % (0.8-7.0); EOSINOPHILS # 0.19 x10^3/uL (0.04-0.54); MCHC 33.7 g/dl (32.3-36.5); MEAN CELL VOLUME 79.8 fl (79.0-92.2); MEAN PLT VOLUME 9.4 fl (9.4-12.4); MONOCYTE # 0.60 x10^3/uL (0.30-0.82); MONOCYTE % 8.1 % (5.3-12.2); RDW 15.1 % (12.2-16.4)
[2024-10-27] MEDS: INSULIN ASPART SLIDING SCALE (NOVOLOG) 1 VIAL SQ SCH (17:19)
[2024-10-27] MEDS: MEROPENEM-0.9% SODIUM CHLORIDE 1 GM/50 ML BAG IVPB SCH (17:20)
[2024-10-27] MEDS: LISINOPRIL 20 MG TABLET PO SCH (22:06)
[2024-10-27] MEDS: ROSUVASTATIN CA 20 MG TABLET PO SCH (22:06)
[2024-10-27] MEDS: VANCOMYCIN HCL IN 5 % DEXTROSE 1,500 MG/300 ML BAG IVPB SCH (22:07)
[2024-10-28] MEDS: LEVOTHYROXINE NA 100 MCG TABLET (FP) PO SCH (06:20)
[2024-10-28 08:50] LABS: ABSOLUTE IMMATURE GRANULOCYTES 0.03 x10^3/uL (0.0-0.031); BASOPHILS # 0.06 x10^3/uL (0.01-0.08); EOSINOPHIL % 3.1 % (0.8-7.0); EOSINOPHILS # 0.27 x10^3/uL (0.04-0.54); MCHC 33.9 g/dl (32.3-36.5); MEAN CELL VOLUME 78.4 fl (79.0-92.2); MEAN PLT VOLUME 9.9 fl (9.4-12.4); MONOCYTE # 0.73 x10^3/uL (0.30-0.82); MONOCYTE % 8.4 % (5.3-12.2); RDW 15.1 % (12.2-16.4)
[2024-10-28 09:29] LABS: CO2 26.0 mmol/L (21-32); GLUCOSE,RANDOM 156.0 mg/dL (74-106)
[2024-10-28 09:32] LABS: CREATININE 1.0 mg/dL (0.55-1.3); SGOT/AST 16.0 U/L (15-37); SGPT/ALT 19.0 U/L (13-61)
[2024-10-28 09:34] LABS: TOT PROT 6.7 g/dl (6.4-8.2)
[2024-10-28 09:35] LABS: ALK PHOS 75.0 U/L (45-117)
[2024-10-28] MEDS: amLODIPine BESYLATE 10 MG TABLET (FP) PO SCH (10:14)
[2024-10-28] MEDS: HYDROCHLOROTHIAZIDE 25 MG TABLET (FP) PO SCH (10:14)
[2024-10-28 15:24] VITALS: RESP 18
[2024-10-29] MEDS: MULTIVITAMINS (DAILY MVI) TABLET (FP) PO SCH (09:21)
[2024-10-29 10:01] LABS: ABSOLUTE IMMATURE GRANULOCYTES 0.02 x10^3/uL (0.0-0.031); BASOPHILS # 0.05 x10^3/uL (0.01-0.08); EOSINOPHIL % 4.6 % (0.8-7.0); EOSINOPHILS # 0.34 x10^3/uL (0.04-0.54); MCHC 33.8 g/dl (32.3-36.5); MEAN CELL VOLUME 78.3 fl (79.0-92.2); MEAN PLT VOLUME 9.5 fl (9.4-12.4); MONOCYTE # 0.56 x10^3/uL (0.30-0.82); MONOCYTE % 7.6 % (5.3-12.2); RDW 15.1 % (12.2-16.4)
[2024-10-29 10:45] LABS: CO2 28.0 mmol/L (21-32); GLUCOSE,RANDOM 171.0 mg/dL (74-106)
[2024-10-29 10:47] LABS: SGPT/ALT 21.0 U/L (13-61)
[2024-10-29 10:48] LABS: CREATININE 0.9 mg/dL (0.55-1.3); SGOT/AST 18.0 U/L (15-37)
[2024-10-29 10:49] LABS: TOT PROT 7.2 g/dl (6.4-8.2)
[2024-10-29 10:50] LABS: ALK PHOS 86.0 U/L (45-117)
[2024-10-30 06:25] VITALS: BP 152/75; PULSE 74; TEMP 97.9
== END 2024-10-30 11:55 | disposition home health service (06) | DRG 617 ==
LOC: JER 10:31 → JERBED 11:53 → INTOOBSV 11:53 → J8W 18:01 → OBSVTOIN 10-26 15:51
PROVIDERS: ADMIT Internal Medicine; ATTEND Nurse Practitioner Family
PROC: 0Y6P0Z0 Detachment at Right 1st Toe, Complete, Open Approach (ICD-10-PCS; principal; 2024-10-27 12:00)
DX: E11.69 Type 2 diabetes mellitus with other specified complication (principal); M86.8X7 Other osteomyelitis, ankle and foot; E11.621 Type 2 diabetes mellitus with foot ulcer; E03.9 Hypothyroidism, unspecified; I10 Essential (primary) hypertension; E78.5 Hyperlipidemia, unspecified; E11.42 Type 2 diabetes mellitus with diabetic polyneuropathy; L97.519 Non-pressure chronic ulcer of other part of right foot with unspecified severity; E66.811 Obesity, class 1; Z68.34 Body mass index [BMI] 34.0-34.9, adult
CPT/HCPCS: 36415; 73630-TC-RT-FY; 80053; 82962; 83036; 83735; 84100; 85025; 85610; 85730; 86140; 86803; 86850; 86900; 86901; 87040; 87070; 87075; 87077; 87106; 87205; 87389; 88304-TC; 88305-TC; 88311-TC; 93005; 93010; 94010; 94760; 99285-25; A6260; C1713; G0378; G0463-25; G0480